=== PATIENT | female | born 1935 | race Caucasian/White ===

== ENCOUNTER 2016-11-28 08:10 | Emergency (ER) | payer MEDICARE ==
[2016-11-28 08:53] LABS: BASOPHILS 0.2 % (0.0-2.0); EOSINOPHILS 2.2 % (0-7); HEMOGLOBIN 13.8 g/dL (12-16); IMMATURE GRANULOCYTES 0.3 % (0-5); MCH 29.4 pg (26.0-34.0); MCHC 32.9 g/dL (31.0-37.0); MCV 89.6 fL (80.0-100.0); MEAN PLATELET VOLUME 9.2 fL (7.4-10.4); MONOCYTES 9.1 % (2-11); NEUTROPHILS 76.2 % (40-80); PLATELET COUNT 186 10x3/uL (130-400); RBC 4.69 10x6/uL (4.00-5.40); RDW 13.6 % (11.5-14.5); WBC 8.7 10x3/uL (4.8-10.8)
[2016-11-28 09:05] LABS: APTT 33.9 SECONDS (22.8-39.4); INR 2.07 (0.85-1.17); PROTIME 23.3 SECONDS (11.6-15.0)
[2016-11-28 09:12] LABS: ANION GAP 7.9 mmol/L (8-16); BILIRUBIN - TOTAL 0.43 mg/dL (0.2-1.3); CALCIUM 10.3 mg/dL (8.5-10.1); CARBON DIOXIDE 31.6 mmol/L (21.0-32.0); CREATININE - SERUM 1.2 mg/dL (0.6-1.3); POTASSIUM - SERUM 3.5 mmol/L (3.5-5.1); PROTEIN - SERUM 6.9 g/dL (6.4-8.2)
[2017-02-05 14:13] VITALS: BMI 30.4
== END 2016-11-28 16:15 | disposition home or self-care (01) ==
LOC: D.ER 08:10
PROVIDERS: Emergency Medicine
DX: K92.2 Gastrointestinal hemorrhage, unspecified (principal); E83.42 Hypomagnesemia; K21.9 Gastro-esophageal reflux disease without esophagitis; N28.9 Disorder of kidney and ureter, unspecified; I10 Essential (primary) hypertension; E78.5 Hyperlipidemia, unspecified; M19.90 Unspecified osteoarthritis, unspecified site; C50.919 Malignant neoplasm of unspecified site of unspecified female breast; K58.9 Irritable bowel syndrome, unspecified

== ENCOUNTER 2017-02-04 11:48 | Inpatient (IN) | payer MEDICARE ==
[~2017-02-04] VITALS: Ht 170.2 cm; Wt 88.0 kg
[2017-02-04 13:08] LABS: BASOPHILS 0.1 % (0.0-2.0); EOSINOPHILS 0.1 % (0-7); HEMATOCRIT 38.5 % (36.0-48.0); HEMOGLOBIN 12.3 g/dL (12-16); IMMATURE GRANULOCYTES 0.4 % (0-5); LYMPHOCYTES 2.4 % (15-50); MCH 29.2 pg (26.0-34.0); MCHC 31.9 g/dL (31.0-37.0); MCV 91.4 fL (80.0-100.0); MEAN PLATELET VOLUME 9.2 fL (7.4-10.4); MONOCYTES 4.9 % (2-11); NEUTROPHILS 92.1 % (40-80); PLATELET COUNT 213 10x3/uL (130-400); RBC 4.21 10x6/uL (4.00-5.40); RDW 14.1 % (11.5-14.5); WBC 13.5 10x3/uL (4.8-10.8)
[2017-02-04 13:11] LABS: APPEARANCE CLOUDY (CLEAR); BILIRUBIN NEGATIVE (NEGATIVE); COLOR YELLOW (YELLOW); GLUCOSE NEGATIVE (NEGATIVE); KETONE NEGATIVE (NEGATIVE); LEUKOCYTE ESTERASE TRACE (NEGATIVE); NITRITE NEGATIVE (NEGATIVE); PROTEIN 3+ mg/dL (NEGATIVE); UROBILINOGEN NORMAL (NORMAL)
[2017-02-04 13:12] LABS: BACTERIA MANY /hpf (NONE SEEN); EPITHELIAL CELLS 0-5 /hpf (0-5); YEAST NONE SEEN /hpf (NONE SEEN)
[2017-02-04 13:41] LABS: CREATININE - SERUM 1.4 mg/dL (0.6-1.3)
[2017-02-04 13:42] LABS: ALBUMIN 2.5 g/dL (3.4-5.0); ANION GAP 12.9 mmol/L (8-16); BILIRUBIN - TOTAL 0.46 mg/dL (0.2-1.3); CALCIUM 9.8 mg/dL (8.5-10.1); CARBON DIOXIDE 27.5 mmol/L (21.0-32.0); POTASSIUM - SERUM 4.4 mmol/L (3.5-5.1); PROTEIN - SERUM 7.1 g/dL (6.4-8.2); TROPONIN-I 0.042 ng/mL (0.000-0.060)
[2017-02-04 15:47] VITALS: BP 120/59; BMI 30.4
[2017-02-04 16:08] VITALS: BP 120/59
--- NOTE | 2017-02-04 16:23 | NUR ---
Patient Name: LAYLA COBB Admission Status: ER Accout number: [id number] Admission Date: 02-04-2017 : 1935 Admission Diagnosis: Attending: ANA Current LOS: 1 Anticipated DC Date: 02-08-2017 Planned Disposition: Nursing Facility [facility] Cert Primary Insurance: MEDICARE A & B Discharge Planning Comments: CM MET WITH PATIENTS DAUGHTER (GUSTAVO) REGARDING D/C NEEDS AND PLANS. PATIENT LIVES AT [facility] FOR 2 YEARS NOW AND WILL RETURN THERE AT DISCHARGE. PATIENT FEEDS HERSELF BUT NEEDS HELP WITH OTHER ADLS. PATIENT IS IN A WHEELCHAIR MOST OF TIME PER DAUGHTER. PATIENTS PCP IS DR. WISDOM AT THE FACILITY AND PHARMACY IS IN HOUSE AT [facility]. CM WILL CONTINUE TO FOLLOW PATIENT WITH D/C NEEDS AND PLANS. PCP DR. WISDOM IN HOUSE AT [place] GUSTAVO RAI (DAUGHTER) [phone] Painter Mirror: Marilee Garcia How many steps to enter\exit or inside your home? 0 0 * PCP DR. WISDOM 0 * Pharmacy IN HOUSE 0 * Preadmission Environment [facility] 0 * Facility Name [facility] 0 * ADLs Partial Dependent 0 * Partial ADLs (Assistance needed) Bathing Dressing Medication Management Toileting Transfers 0 * Equipment Wheelchair 0 * List name and contact numbers for known caregivers / representatives who currently or will assist patient after discharge: GUSTAVO RAI (DAUGHTER) [phone] 0 * Community resources currently utilized None 0 * Additional services required to return to the preadmission environment? Yes 0 * Can the patient safely return to the preadmission environment? Yes 0 * Has this patient been hospitalized within the prior 30 days at any hospital? No 0 Grand Total: 0
[2017-02-04 20:00] VITALS: BP 142/71
--- NOTE | 2017-02-04 20:41 | NUR ---
on patient's chart is a signed form with a box checked "I WANT CPR". I CLARIFIED WITH THE PATIENT SHE STATED "NO, I DO NOT WANT CPR." EXPLAINED TO PATIENT WHAT CPR IS AND WHAT DNR MEANS AND PATIENT VERBALIZED UNDERSTANDING.PATIENT STATED "I DO NOT WANT CPR." WHEN I DID PATIENT'S ADMISSION HISTORY THE PATIENT'S DAUGHTER STATED THE PATIENT IS A DNR, AND STATED SHE WILL BRING A COPY OF THE LIVING WILL TOMORROW. THE PATIENT AGREED. DISCUSSED WITH TARUN EDGE.
[2017-02-04] MEDS ORDERED: OMEPRAZOLE20 M1 PO (20:50)
[2017-02-04] MEDS ORDERED: SLOW RELEASE I160 MG PO (20:50)
[2017-02-04] MEDS ORDERED: VITAMIN D31000 UNIT PO (20:51)
[2017-02-04] MEDS ORDERED: ANASTROZOLE1 MG PO (20:51)
[2017-02-04] MEDS ORDERED: DETROL LA4 MG PO (20:52)
[2017-02-04] MEDS ORDERED: COUMADIN2.5 MG PO (20:52)
[2017-02-04] MEDS ORDERED: INDERAL LA80 MG PO (20:53)
[2017-02-04] MEDS ORDERED: TRIAMTERENE-HCT1 TA1 PO (20:53)
[2017-02-04] MEDS ORDERED: K-TAB10 MEQ PO (20:53)
[2017-02-04] MEDS ORDERED: HYDROCODON-ACE1 EAC7 PO ×2 (20:54→21:02)
[2017-02-04] MEDS ORDERED: NORVASC10 MG PO (20:54)
[2017-02-04] MEDS ORDERED: COLACE100 MG PO (20:58)
[2017-02-04] MEDS ORDERED: MIRALAX17 GM PO (20:58)
[2017-02-04] MEDS ORDERED: MYLANTA / MAALO30 ML PO (20:59)
[2017-02-04] MEDS ORDERED: PREPARATION H S48 EA RC (21:00)
[2017-02-04] MEDS ORDERED: PREPARATION H O57 GM TOPICAL (21:00)
[2017-02-04] MEDS ORDERED: ACETAMINOPHEN325 MG PO ×2 (21:01)
[2017-02-04] MEDS ORDERED: PROAIR HFA8.5 GM INH (21:03)
[2017-02-05] VITALS: BP 157/68
[2017-02-05 05:00] VITALS: BP 103/53
[2017-02-05 05:25] LABS: BASOPHILS 0.1 % (0.0-2.0); EOSINOPHILS 0.1 % (0-7); HEMATOCRIT 34.9 % (36.0-48.0); LYMPHOCYTES 1.8 % (15-50); MCH 28.4 pg (26.0-34.0); MCHC 31.5 g/dL (31.0-37.0); MCV 90.2 fL (80.0-100.0); MEAN PLATELET VOLUME 9.8 fL (7.4-10.4); MONOCYTES 5.4 % (2-11); NEUTROPHILS 91.6 % (40-80); RBC 3.87 10x6/uL (4.00-5.40); RDW 14.1 % (11.5-14.5); WBC 15.7 10x3/uL (4.8-10.8)
[2017-02-05 05:40] LABS: ANION GAP 13.7 mmol/L (8-16); CARBON DIOXIDE 24.7 mmol/L (21.0-32.0); CREATININE - SERUM 1.4 mg/dL (0.6-1.3); MAGNESIUM - SERUM 1.3 mg/dL (1.8-2.4); PHOSPHOROUS 2.4 mg/dL (2.5-4.9)
[2017-02-05 05:41] LABS: PLATELET COUNT 166 10x3/uL (130-400)
[2017-02-05 05:46] LABS: POTASSIUM - SERUM 3.4 mmol/L (3.5-5.1)
[2017-02-05 07:35] VITALS: BP 125/68
[2017-02-05 11:35] VITALS: BP 124/60
[2017-02-05 14:13] VITALS: Ht 170.2 cm; Wt 88.0 kg
--- NOTE | 2017-02-05 14:15 | NUR ---
IV TO LEFT WRIST INFILTRATED WHILE INFUSING NORMAL SALINE. IV ALREADY OUT, PATIENT DENIES PULLING IT OUT. ELEVATED LEFT WRIST.
--- NOTE | 2017-02-05 14:47 | NUR ---
IV STARTED TO RIGHT FOREARM X'S 2 ATTEMTPS.
[2017-02-05 15:55] VITALS: BP 123/57
[2017-02-05 17:43] LABS: PROTIME 22.7 SECONDS (11.6-15.0)
[2017-02-05 20:00] VITALS: BP 120/69
[2017-02-06] VITALS: BP 121/57
[2017-02-06] MEDS ORDERED: NORCO 7.5/325 T1 TA1 PO (01:57)
[2017-02-06 04:00] VITALS: BP 153/79; BP 153/81
--- NOTE | 2017-02-06 07:00 | NUR ---
PT REC'D FROM TARUN EDGE. RESTING IN BED WITH EYES CLOSED. NO SIGNS OF DISTRESS. RESP EVEN AND UNLABORED. BED LOW, CALL LIGHT IN REACH, CPOC.
[2017-02-06 07:07] LABS: BASOPHILS 0.1 % (0.0-2.0); EOSINOPHILS 1.2 % (0-7); HEMATOCRIT 35.6 % (36.0-48.0); HEMOGLOBIN 11.2 g/dL (12-16); IMMATURE GRANULOCYTES 0.3 % (0-5); LYMPHOCYTES 6.6 % (15-50); MCH 28.1 pg (26.0-34.0); MCHC 31.5 g/dL (31.0-37.0); MCV 89.4 fL (80.0-100.0); MEAN PLATELET VOLUME 9.6 fL (7.4-10.4); MONOCYTES 9.4 % (2-11); NEUTROPHILS 82.4 % (40-80); PLATELET COUNT 168 10x3/uL (130-400); RBC 3.98 10x6/uL (4.00-5.40); RDW 13.9 % (11.5-14.5); WBC 13.7 10x3/uL (4.8-10.8)
[2017-02-06 07:14] LABS: INR 1.72 (0.85-1.17); PROTIME 20.1 SECONDS (11.6-15.0)
[2017-02-06 07:19] LABS: ANION GAP 8.8 mmol/L (8-16); CALCIUM 9.5 mg/dL (8.5-10.1); CARBON DIOXIDE 27.9 mmol/L (21.0-32.0); CREATININE - SERUM 1.4 mg/dL (0.6-1.3); POTASSIUM - SERUM 3.7 mmol/L (3.5-5.1)
[2017-02-06 08:41] VITALS: BP 140/74
--- NOTE | 2017-02-06 11:53 | NUR ---
WITHOUT DISTRESS.LYING IN BED.CALL LIGHT IN REACH.ISOLATION MAINTAINED.
[2017-02-06 12:30] VITALS: BP 135/75
[2017-02-06 16:05] VITALS: BP 100/76
--- NOTE | 2017-02-06 17:13 | NUR ---
PRN NORCO ADMINISTERED PER PT C/O SHOULDER AND BACK PAIN. WILL REASSESS. DINNER TRAY IN ROOM. BED LOW, CALL LIGHT IN REACH, DENIES NEEDS. CPOC.
[2017-02-06 20:00] VITALS: BP 148/86
--- NOTE | 2017-02-06 23:17 | NUR ---
ASSESSED AT THE BEGINNING OF THE SHIFT. SHE IS ALERT AND ORIENTED, ABLE TO VERBALIZE NEEDS. WE NEED TO ASSIST HER WITH TURNING AND SHE IS INCONT. WHICH MEANS WE CHANGE HER LINENS FREQUENTLY. SHE HAS 2+ EDEMA TO BILATER LOWER LEGS. THE TELEMETRY IS IN PLACE AND SHE HAS TAKEN HER NIGHT MEDS WITH A PAIN PILL TO HELP HER REST COMFORTABLE. THE BED IS LOW, RAILS UP X'S 2 WITH THE CALL LIGHT AT HAND.
[2017-02-07 04:00] VITALS: BP 152/81
[2017-02-07 05:51] LABS: BASOPHILS 0.3 % (0.0-2.0); EOSINOPHILS 1.6 % (0-7); HEMATOCRIT 34.1 % (36.0-48.0); IMMATURE GRANULOCYTES 0.2 % (0-5); LYMPHOCYTES 5.8 % (15-50); MCH 28.4 pg (26.0-34.0); MCHC 32.3 g/dL (31.0-37.0); MCV 87.9 fL (80.0-100.0); MEAN PLATELET VOLUME 9.5 fL (7.4-10.4); MONOCYTES 11.9 % (2-11); NEUTROPHILS 80.2 % (40-80); PLATELET COUNT 167 10x3/uL (130-400); RBC 3.88 10x6/uL (4.00-5.40)
[2017-02-07 06:01] LABS: WBC 9.5 10x3/uL (4.8-10.8)
[2017-02-07 06:06] LABS: INR 1.77 (0.85-1.17); PROTIME 20.6 SECONDS (11.6-15.0)
[2017-02-07 06:31] LABS: ANION GAP 11.5 mmol/L (8-16); CALCIUM 9.5 mg/dL (8.5-10.1); CARBON DIOXIDE 28.3 mmol/L (21.0-32.0); CREATININE - SERUM 1.1 mg/dL (0.6-1.3); POTASSIUM - SERUM 3.8 mmol/L (3.5-5.1)
[2017-02-07 06:35] LABS: % SATURATION 15 % (15-55); IRON 27 ug/dl (35-150); TOTAL IRON BIND CAPACITY 174 ug/dl (260-445); UNSAT IRON BIND CAPACITY 147 ug/dl (150-375)
[2017-02-07 08:19] VITALS: BP 138/74
--- NOTE | 2017-02-07 11:16 | NUR ---
ALERTED BY NINFA PHYSICAL THERAPIST, THAT AGGRESIVE PROM EXERCISES WERE PERFORMED. PT TOLERATED WELL.
[2017-02-07 11:53] VITALS: BP 132/63
--- NOTE | 2017-02-07 12:52 | NUR ---
AWAKE AND ALERT. ORIENTED X3. NO C/O AT THIS TIME. LUNGS ARE TIGHT ON LEFT SIDE WITH FAINT CRACKLES THROUGHOUT LUNG NGUYỄN, PATIENT REPORTS NON PRODUCTIVE COUGH. SKIN IS INTACT WTIHOUT REDNESS. DENIES NEEDS. FAMILY AT BEDSIDE.
[2017-02-07 15:36] VITALS: BP 158/74
--- NOTE | 2017-02-07 16:08 | NUR ---
COMPLETE LINEN CHANGE PROVIDED DUE TO INCONTINENCE OF URINE. PRN HYDROCODNE AMINISTERED PER PT COMPLIANTS OF 05/17 GENERALIZED PAIN. WILL REASSESS.
[2017-02-07 20:00] VITALS: BP 147/92
--- NOTE | 2017-02-07 20:00 | NUR ---
ASSESSMENT PER FLOWSHEET. INC URINE LINENS CHANGED. IV PATTENT RT ARM OF 1/2NS AT 75CC'S/HR DR. HASKINS HERE IV DECREASED TO 50CC'S/HR. O2 ON 2 L/M PER NC. TELM. SR HR 94.PT IN CONTACT ISOLATION.
--- NOTE | 2017-02-07 22:00 | NUR ---
MEDS GIVEN PER MAR.
[2017-02-08] VITALS: BP 144/88
--- NOTE | 2017-02-08 | NUR ---
INC URINE LINENS CHANGED.
[2017-02-08 05:37] LABS: BASOPHILS 0.2 % (0.0-2.0); EOSINOPHILS 0.8 % (0-7); HEMATOCRIT 37.7 % (36.0-48.0); HEMOGLOBIN 12.5 g/dL (12-16); IMMATURE GRANULOCYTES 0.7 % (0-5); LYMPHOCYTES 4.8 % (15-50); MCH 28.8 pg (26.0-34.0); MCHC 33.2 g/dL (31.0-37.0); MCV 86.9 fL (80.0-100.0); MONOCYTES 9.4 % (2-11); NEUTROPHILS 84.1 % (40-80); PLATELET COUNT 169 10x3/uL (130-400); RBC 4.34 10x6/uL (4.00-5.40); RDW 13.7 % (11.5-14.5); WBC 11.1 10x3/uL (4.8-10.8)
[2017-02-08 05:48] LABS: INR 1.82 (0.85-1.17); PROTIME 21.1 SECONDS (11.6-15.0)
[2017-02-08 06:16] LABS: ANION GAP 11.6 mmol/L (8-16); CALCIUM 10.2 mg/dL (8.5-10.1); CARBON DIOXIDE 27.8 mmol/L (21.0-32.0); CREATININE - SERUM 1.1 mg/dL (0.6-1.3); POTASSIUM - SERUM 3.4 mmol/L (3.5-5.1)
--- NOTE | 2017-02-08 08:02 | NUR ---
PT AOX3 RESP EVEN AND NONLABORED PT DENIES NEEDS AT THIS TIME IV TO RIGHT FOREARM PATENT AND INTACT SRX2 CALL LIGHT WITHIN REACH AND BED AT LOWEST SETTING WILL CONTINUE TO MONITOR
[2017-02-08 08:06] VITALS: BP 165/75
[2017-02-08 11:21] VITALS: BP 122/80
--- NOTE | 2017-02-08 11:28 | NUR ---
IV ACCESS-22 GAUGE INSERTED IN LEFT HAND. KIA MOHR RN
--- NOTE | 2017-02-08 11:57 | NUR ---
IV ON LEFT FOREARM REMOVED BECAUSE OF SWELLING IN HAND AND WRIST CATHETER INTACT. 22G STARTED IN RIGHT HAND PATENT AND INTACT
--- NOTE | 2017-02-08 14:58 | NUR ---
NUTRITION MONITORING & EVAL CHART REVIEWED. PT VISIT. ISOLATION, FAMILY AT BEDSIDE. PT REPORTS NOT EATING SECONDARY NO APPETITE. STATED SHE TOOK "TOO MANY PILLS" PRIOR TO LUNCH. "JUST NOT HUNGRY." WILL CONTINUE TO PROVIDE DIET, HONOR FOOD PREFERENCES. RD FOLLOWING
[2017-02-08 15:20] VITALS: BP 118/68
[2017-02-08 19:00] VITALS: BP 156/72
--- NOTE | 2017-02-08 19:20 | NUR ---
PT LYING IN BED AWAKE, ASSESSMENT COMPLETED, NO ACUTE DISTRESS NOTED, DENIES NEEDS AT THIS TIME, DOES NOT WANT SCD'S ON, SR'S UP, CL IN REACH, ISOLATION PRECAUTIONS IN PLACE, WILL MONITOR
--- NOTE | 2017-02-08 21:12 | NUR ---
PRN NORCO GIVEN FOR C/O GENERALIZED PAIN 06/17 ALONG WITH SCHEDULED MEDS, GRACIE WELL, DENIES FURTHER NEEDS AT THIS TIME, CL IN REACH
--- NOTE | 2017-02-09 00:01 | NUR ---
IV EVAN DUNHAM PER MAR, GRACIE WELL, DENIES NEEDS, SAFETY PRECAUTIONS IN PLACE, CL IN REACH
[2017-02-09 05:00] LABS: BASOPHILS 0.2 % (0.0-2.0); EOSINOPHILS 2.2 % (0-7); HEMATOCRIT 34.7 % (36.0-48.0); HEMOGLOBIN 11.3 g/dL (12-16); IMMATURE GRANULOCYTES 1.4 % (0-5); LYMPHOCYTES 6.2 % (15-50); MCH 28.3 pg (26.0-34.0); MCHC 32.6 g/dL (31.0-37.0); MEAN PLATELET VOLUME 9.6 fL (7.4-10.4); MONOCYTES 10.9 % (2-11); NEUTROPHILS 79.1 % (40-80); PLATELET COUNT 171 10x3/uL (130-400); RBC 3.99 10x6/uL (4.00-5.40); RDW 13.9 % (11.5-14.5); WBC 11.2 10x3/uL (4.8-10.8)
[2017-02-09 05:20] LABS: INR 1.9 (0.85-1.17); PROTIME 21.8 SECONDS (11.6-15.0)
[2017-02-09 06:15] LABS: ANION GAP 13.1 mmol/L (8-16); CALCIUM 9.7 mg/dL (8.5-10.1); CARBON DIOXIDE 24.6 mmol/L (21.0-32.0); CREATININE - SERUM 1.1 mg/dL (0.6-1.3); POTASSIUM - SERUM 3.7 mmol/L (3.5-5.1)
[2017-02-09 08:22] VITALS: BP 161/74
[2017-02-09 11:14] VITALS: BP 142/69
[2017-02-09 15:11] VITALS: BP 136/70
[2017-02-09 19:00] VITALS: BP 121/57
--- NOTE | 2017-02-09 23:40 | NUR ---
192)REC'D WALKING ROUNDS EYES CLOSED RESP. DEEP AND EVEN. 02 2L NC MONITOR SHOWING SR HR 82.CONTACT ISOLATION REMAINS IN PROGRESS.SCD'S INTACT. WILL CONTINUE TO MONITOR FOR ANY CHGES. IN RESP.STATUS AND FOLLOW CURRENT PLAN OF CARE.
[2017-02-10] VITALS: BP 134/60
[2017-02-10 04:00] VITALS: BP 143/41
[2017-02-10 05:49] LABS: BASOPHILS 0.2 % (0.0-2.0); EOSINOPHILS 3.7 % (0-7); HEMATOCRIT 35.9 % (36.0-48.0); HEMOGLOBIN 11.5 g/dL (12-16); IMMATURE GRANULOCYTES 4.1 % (0-5); LYMPHOCYTES 6.1 % (15-50); MCH 27.8 pg (26.0-34.0); MCV 86.9 fL (80.0-100.0); MEAN PLATELET VOLUME 9.7 fL (7.4-10.4); MONOCYTES 13.3 % (2-11); NEUTROPHILS 72.6 % (40-80); PLATELET COUNT 198 10x3/uL (130-400); RBC 4.13 10x6/uL (4.00-5.40); RDW 13.8 % (11.5-14.5); WBC 10.1 10x3/uL (4.8-10.8)
[2017-02-10 05:58] LABS: INR 2.02 (0.85-1.17); PROTIME 22.8 SECONDS (11.6-15.0)
[2017-02-10 06:10] LABS: ANION GAP 10.8 mmol/L (8-16); BILIRUBIN - TOTAL 0.5 mg/dL (0.2-1.3); CARBON DIOXIDE 27.1 mmol/L (21.0-32.0); CREATININE - SERUM 1.1 mg/dL (0.6-1.3); POTASSIUM - SERUM 3.9 mmol/L (3.5-5.1); PROTEIN - SERUM 6.8 g/dL (6.4-8.2)
--- NOTE | 2017-02-10 07:40 | NUR ---
PATIENT RECEIVED IN RIGHT LATERAL POSITION RESTING QUIETLY. RESPIRATIONS EVEN AND UNLABORED. REPOSITIONED IN BED FOR COMFORT. TERESA ALARM ON. SIDE RAILS UP X2. BED IN LOW POSITION. CALL LIGHT IN REACH.
[2017-02-10 08:59] VITALS: BP 158/81
--- NOTE | 2017-02-10 09:10 | NUR ---
PATIENT ALERT IN MID JAFFE POSITION. RESPIRATIONS EVEN AND UNLABORED. SCHEDULED MEDICATION ADMINISTERED WELL NORCO PER PRN ORDER FOR PAIN 08/17. SIDE RAILS UP X2. BED IN LOW POSITION. CALL LIGHT IN REACH. TERESA ALARM ON.
--- NOTE | 2017-02-10 11:35 | NUR ---
PATIENT IN LOW JAFFE POSITION RESTING WITH EYES CLOSED. RESPIRATIONS EVEN AND UNLABORED. WAKES EASY. SCHEDULED MEDICATION ADMINISTERED. SIDE RAILS UP X2. BED IN LOW POSITION. CALL LIGHT IN REACH. TERESA ALARM ON.
[2017-02-10 13:09] VITALS: BP 135/67
--- NOTE | 2017-02-10 13:45 | NUR ---
SITTING UP IN CHAIR AT BEDSIDE. NO SIGNS OF DISTRESS NOTED. NORCO PER PRN ORDER FOR PAIN /10. NO FURTHER NEEDS VOICED. CALL LIGHT IN REACH. TERESA ALARM ON.
--- NOTE | 2017-02-10 15:05 | NUR ---
PATIENT IN LOW JAFFE POSITION RESTING QUIETLY. RESPIRATIONS EVEN AND UNLABORED. FAMILY AT BEDSIDE. SCHEDULED MEDICATION ADMINISTERED. SIDE RAILS UP X2. BED IN LOW POSITION. CALL LIGHT IN REACH. TERESA ALARM ON.
--- NOTE | 2017-02-10 15:39 | NUR ---
NUTRITION MONITORING & EVAL CHART REVIEWED, PT VISIT. PT REFUSING LUNCH, REFUSING ENSURE. STATES SHE IS NOT HUNGRY. NO RECENT BM RECORDED. ? CONSTIPATION. DOES NOT APPEAR PRN COLACE OR MIRALAX HAS BEEN GIVEN. WILL SPEAK WITH NURSING. RD FOLLOWING
--- NOTE | 2017-02-10 17:27 | NUR ---
MIRALAX ADMINISTERED PER PRN ORDER. PATIENT REPORTS SHE IS UNSURE WHEN LAST BM WAS. FAMILY PRESENT AT BEDSIDE. SIDE RAILS UP X2. BED IN LOW POSITION. CALL LIGHT IN REACH. TERESA ALARM ON.
[2017-02-10 17:30] VITALS: BP 128/61
[2017-02-10 19:00] VITALS: BP 113/59
--- NOTE | 2017-02-10 20:00 | NUR ---
AWAKE,ALERT.NO DISTRESS NOTED. O2 AT 2 L PER NC ON. IV 1/2 NS INFUSING TO LEFT HAND WIHTOUT REDNESS OR EDEMA. CL IN REACH
[2017-02-11] VITALS: BP 149/73
--- NOTE | 2017-02-11 00:57 | NUR ---
RESTING QUIETLY. NO DISTRESS NOTED. CL IN REACH
[2017-02-11 04:00] VITALS: BP 140/61
--- NOTE | 2017-02-11 04:35 | NUR ---
PATIENT RESTING IN BED WITH EYES CLOSED. BED IN LOWEST POSITION AND CALL LIGHT WITHIN REACH.
--- NOTE | 2017-02-11 05:51 | NUR ---
AWAKE,ALERT, NO COMPLAINTS VOICED. CL IN REACH.
[2017-02-11 06:20] LABS: BASOPHILS 0.2 % (0.0-2.0); EOSINOPHILS 2.7 % (0-7); HEMATOCRIT 37.4 % (36.0-48.0); HEMOGLOBIN 12.1 g/dL (12-16); IMMATURE GRANULOCYTES 2.3 % (0-5); LYMPHOCYTES 5.7 % (15-50); MCH 28.1 pg (26.0-34.0); MCHC 32.4 g/dL (31.0-37.0); MEAN PLATELET VOLUME 9.3 fL (7.4-10.4); MONOCYTES 9.6 % (2-11); NEUTROPHILS 79.5 % (40-80); PLATELET COUNT 222 10x3/uL (130-400); RDW 13.8 % (11.5-14.5); WBC 10.7 10x3/uL (4.8-10.8)
[2017-02-11 06:34] LABS: INR 2.24 (0.85-1.17); PROTIME 24.8 SECONDS (11.6-15.0)
[2017-02-11 06:58] LABS: ALBUMIN 1.9 g/dL (3.4-5.0); ANION GAP 10.5 mmol/L (8-16); BILIRUBIN - TOTAL 0.6 mg/dL (0.2-1.3); CALCIUM 10.1 mg/dL (8.5-10.1); CARBON DIOXIDE 28.2 mmol/L (21.0-32.0); CREATININE - SERUM 1.1 mg/dL (0.6-1.3); POTASSIUM - SERUM 3.7 mmol/L (3.5-5.1); PROTEIN - SERUM 6.8 g/dL (6.4-8.2)
[2017-02-11 08:00] VITALS: BP 149/71
--- NOTE | 2017-02-11 08:15 | NUR ---
SLEEPING EASILY AROUSED, DENIES NEEDS, ASSESSMENT COMPLETE, TERESA MAT ON, BED LOWEST POSIITON, CALL LIGHT IN REACH, WILL CONTINUE TO MONITOR
[2017-02-11 12:00] VITALS: BP 126/60
--- NOTE | 2017-02-11 13:37 | NUR ---
AWAKE AND ALERT. ORIENTED X3. SITTING UP IN CHAIR AT BEDSIDE. LUNGS CONTINUE TO BE DIMINISHED ON LEFT SIDE WITH CRACKLES NOTED TO RIGHT. NO COUGH NOTED. DENIES NEEDS.
--- NOTE | 2017-02-11 14:00 | NUR ---
UP IN CHAIR AT THIS TIME. SLEEPING WITH RESPIRATIONS EVEN AND NON LABORED. CALL LIGHT IN REACH, NO NEEDS ASSESSED AT THIS TIME. REMAINS IN CONTACT ISOLATION. WILL CONTINUE WITH PLAN OF CARE.
[2017-02-11 16:00] VITALS: BP 126/51
[2017-02-11 19:00] VITALS: BP 128/63
[2017-02-12] VITALS: BP 135/69
--- NOTE | 2017-02-12 | NUR ---
PT INCONTINENT OF BLADDER. CHANGED PADS AND GOWN. GAVE PT NORCO FOR RIGHT SIDE AND BACK PAIN. REPOSITIONED AND TURNED. NO OTHER NEEDS. WILL CONTINUE TO MONITOR.
[2017-02-12 04:00] VITALS: BP 156/73
[2017-02-12 05:24] LABS: BASOPHILS 0.2 % (0.0-2.0); EOSINOPHILS 1.8 % (0-7); HEMATOCRIT 34.5 % (36.0-48.0); HEMOGLOBIN 11.3 g/dL (12-16); IMMATURE GRANULOCYTES 2.2 % (0-5); LYMPHOCYTES 7.2 % (15-50); MCH 28.5 pg (26.0-34.0); MCHC 32.8 g/dL (31.0-37.0); MCV 87.1 fL (80.0-100.0); MEAN PLATELET VOLUME 9.4 fL (7.4-10.4); MONOCYTES 10.4 % (2-11); NEUTROPHILS 78.2 % (40-80); PLATELET COUNT 217 10x3/uL (130-400); RBC 3.96 10x6/uL (4.00-5.40); RDW 13.9 % (11.5-14.5); WBC 11.1 10x3/uL (4.8-10.8)
[2017-02-12 05:44] LABS: INR 2.63 (0.85-1.17); PROTIME 28.2 SECONDS (11.6-15.0)
[2017-02-12 05:52] LABS: ALBUMIN 1.9 g/dL (3.4-5.0); ANION GAP 11.7 mmol/L (8-16); BILIRUBIN - TOTAL 0.5 mg/dL (0.2-1.3); CALCIUM 9.8 mg/dL (8.5-10.1); CREATININE - SERUM 1.1 mg/dL (0.6-1.3); POTASSIUM - SERUM 3.7 mmol/L (3.5-5.1); PROTEIN - SERUM 5.7 g/dL (6.4-8.2)
--- NOTE | 2017-02-12 07:40 | NUR ---
SITTING IN BED WAITING FOR BREAKFAST, HAS SOME PAIN ON THE RIGHT SIDE, REQUEST PAIN MEDS, DENIES NEEDS, BED LOWEST POSITION, CALL LIGHT IN REACH, PAIN MEDS CAN BE GIVEN AT 0900, WILL CONTINUE TO MONITOR
[2017-02-12 08:20] VITALS: BP 136/70
[2017-02-12 12:14] VITALS: BP 122/70
--- NOTE | 2017-02-12 14:35 | NUR ---
RESTING QUIETLY IN BED. DENIES NEEDS. LUNGS IMPROVED FROM YESTERDAY WITH SCANT CRACKLES THROUGHTOUT. INCONTINENT OF URINE AT THIS TIME.
[2017-02-12 15:26] VITALS: BP 141/66
--- NOTE | 2017-02-12 19:50 | NUR ---
PT LYING IN BED AWAKE, NO ACUTE DISTRESS NOTED, NC IN PLACE AT 2L, SCD'S IN PLACE, TERESA ALARM ON, DENIES PAIN OR NEEDS AT THIS TIME, CL IN REACH, WILL MONITOR
[2017-02-12 20:00] VITALS: BP 143/69
--- NOTE | 2017-02-12 21:30 | NUR ---
MEDS GIVEN PER MAR, GRACIE WELL, CL IN REACH
--- NOTE | 2017-02-12 23:39 | NUR ---
IV ZOSYN HUNG PER PIERRE, GRACIE WELL, SAFETY AND ISOLATION PRECAUTIONS IN PLACE, CL IN REACH
[2017-02-13] VITALS: BP 171/87
--- NOTE | 2017-02-13 01:16 | NUR ---
PRN NORCO GIVEN FOR C/O GENERALIZED PAIN 06/17, GRACIE WELL, WILL MONITOR, CL IN REACH
--- NOTE | 2017-02-13 03:21 | NUR ---
RESTING WITH EYES CLOSED, NO DISTRESS NOTED, FALL AND ISOLATION PRECAUTIONS IN PLACE, CL IN REACH
[2017-02-13 04:00] VITALS: BP 144/88
[2017-02-13 06:16] LABS: BASOPHILS 0.2 % (0.0-2.0); EOSINOPHILS 1.5 % (0-7); HEMATOCRIT 35.8 % (36.0-48.0); HEMOGLOBIN 11.5 g/dL (12-16); LYMPHOCYTES 7.1 % (15-50); MCH 28.1 pg (26.0-34.0); MCHC 32.1 g/dL (31.0-37.0); MCV 87.5 fL (80.0-100.0); MEAN PLATELET VOLUME 9.1 fL (7.4-10.4); MONOCYTES 9.2 % (2-11); RBC 4.09 10x6/uL (4.00-5.40); RDW 13.8 % (11.5-14.5); WBC 12.1 10x3/uL (4.8-10.8)
[2017-02-13 06:23] LABS: PLATELET COUNT 277 10x3/uL (130-400)
[2017-02-13 06:36] LABS: ALBUMIN 1.9 g/dL (3.4-5.0); BILIRUBIN - TOTAL 0.45 mg/dL (0.2-1.3); CALCIUM 10.2 mg/dL (8.5-10.1); CARBON DIOXIDE 26.4 mmol/L (21.0-32.0); CREATININE - SERUM 1.1 mg/dL (0.6-1.3); POTASSIUM - SERUM 3.4 mmol/L (3.5-5.1); PROTEIN - SERUM 6.8 g/dL (6.4-8.2)
[2017-02-13 06:47] LABS: PROTIME 32.8 SECONDS (11.6-15.0)
[2017-02-13 06:48] LABS: INR 3.17 (0.85-1.17)
--- NOTE | 2017-02-13 07:30 | NUR ---
RECIEVED PT DURING WALKING ROUNDS. PT RESTING IN BED WITH COMPLAINTS OF PAIN OF A 6 ON A SCALE OF 1-10. WILL ADMINISTER PAIN MEDICATION PER ORDER. ASSESSMENT DONE PER FLOWSHEET. BED IN LOW POSITION AND CALL LIGHT WITHIN REACH. WILL CONTINUE TO MONITOR.
[2017-02-13 08:25] VITALS: BP 170/96
--- NOTE | 2017-02-13 09:40 | NUR ---
ADMINISTERED PAIN MEDICATION AT THIS TIME PER ORDER FOR PAIN OF A 8 ON A SCALE OF 1-10. PT HAS VISITOR AT BEDSIDE. BED IN LOW POSITION AND CALL LIGHT WITHIN REACH. WILL CONTINUE TO MONITOR.
[2017-02-13 12:32] VITALS: BP 148/74
--- NOTE | 2017-02-13 17:17 | NUR ---
PATIENT IS RESTING IN BED. CONTACT PRECAUTIONS IN PLACE. PATIENT DENIES ANY NEEDS AT PRESENT TIME. NO COMPLAINTS OF PAIN. CALL LIGHT IN PATIENT'S REACH. WILL MONITOR PATIENT.
[2017-02-13 17:31] VITALS: BP 175/83
[2017-02-13 19:01] VITALS: BP 128/63
[2017-02-14] VITALS: BP 143/63
--- NOTE | 2017-02-14 02:00 | NUR ---
PT IN BED WITH NO DISTRESS. RESPIRATIONS ARE EVEN AND UNLABORED. ISOLATION PRECAUTIONS IN PLACE. SIDE RAILS ARE UP X 2. BED IS LOW. CALL LIGHT IS WITHIN REACH.
[2017-02-14 04:00] VITALS: BP 132/60
[2017-02-14 04:51] LABS: BASOPHILS 0.2 % (0.0-2.0); HEMATOCRIT 37.2 % (36.0-48.0); IMMATURE GRANULOCYTES 1.8 % (0-5); LYMPHOCYTES 7.1 % (15-50); MCH 28.2 pg (26.0-34.0); MCHC 32.3 g/dL (31.0-37.0); MCV 87.3 fL (80.0-100.0); MEAN PLATELET VOLUME 9.1 fL (7.4-10.4); MONOCYTES 7.2 % (2-11); NEUTROPHILS 82.7 % (40-80); RBC 4.26 10x6/uL (4.00-5.40); RDW 13.9 % (11.5-14.5)
[2017-02-14 04:53] LABS: PLATELET COUNT 354 10x3/uL (130-400)
[2017-02-14 05:02] LABS: INR 3.4 (0.85-1.17); PROTIME 34.7 SECONDS (11.6-15.0)
[2017-02-14 05:09] LABS: ANION GAP 10.5 mmol/L (8-16); BILIRUBIN - TOTAL 0.5 mg/dL (0.2-1.3); CALCIUM 10.7 mg/dL (8.5-10.1); CARBON DIOXIDE 28.3 mmol/L (21.0-32.0); CREATININE - SERUM 1.1 mg/dL (0.6-1.3); POTASSIUM - SERUM 3.8 mmol/L (3.5-5.1); PROTEIN - SERUM 7.2 g/dL (6.4-8.2)
--- NOTE | 2017-02-14 07:10 | NUR ---
PT REC'D FROM KATHY OLVERA. RESTING IN BED WITH EYES CLOSED. NO SIGNS OF DISTRESS. RESP EVEN AND UNLABORED. BED LOW, CALL LIGHT IN REACH, DENIES NEEDS. CPOC.
[2017-02-14 08:28] VITALS: BP 143/86
--- NOTE | 2017-02-14 09:25 | NUR ---
MORNING MEDS PASSED AT THIS TIME. PRN NORCO ADMINISTERED PER PT C/O GENERALIZED PAIN. COMPLETE LINEN CHANGE PROVIDED DUE TO INCONT OF BLADDER. COCCYX RED AND NON-BLANCHABLE. REPOSITIONED TO L SIDE. BED LOW, CALL LIGHT IN REACH, DENIES NEEDS. CPOC.
[2017-02-14 12:02] VITALS: BP 134/68
--- NOTE | 2017-02-14 16:00 | NUR ---
PRN NORCO ADMINISTERED PER PT COMPLAINTS OF 8/10 GENERALIZED PAIN. WILL REASSESS. COMPLETE LINEN CHANGE PROVIDED DUE TO INCONT. PT TURNED TO R SIDE. BED LOW, CALL LIGHT IN REACH, DENIES NEEDS. CPOC.
--- NOTE | 2017-02-14 16:15 | NUR ---
PT AOX4 RESP EVEN AND NONLABORED IV TO LEFT WRIST PATENT AND INTAC. PT RECEIVING IV ANTIBIOTICS FOR ECOLI IN BLOODSTREAM. PT DENIES NEEDS AT THIS TIME. BED AT LOWEST SETTING CALL LIGHT WITHIN REACH WILL CONTINUE TO MONITOR
--- NOTE | 2017-02-14 16:25 | NUR ---
16FR SCOTT CATHETER INSTERTED USING STERILE TECHNIQUE. IMMEDIATE RETURN OF APPROXIMATLY 500CC'S OF CLEAR GERI URINE. PT TOLERATED WELL. STAT LOCK APPLIED TO R LEG. REPOSITIONED IN BED TO R SIDE. BED LOW, CALL LIGHT IN REACH, DENIES NEEDS. CPOC.
[2017-02-14 16:36] VITALS: BP 126/78
[2017-02-14 20:00] VITALS: BP 147/70
[2017-02-15 00:30] VITALS: BP 101/54
--- NOTE | 2017-02-15 03:41 | NUR ---
PATIENT RESTING WITH EYES CLOSED. NO VISIBLE SIGNS OF DISTRESS. BED IN LOWEST POSITION AND CALL LIGHT WITHIN REACH.
--- NOTE | 2017-02-15 03:47 | NUR ---
PATIENT HAS RESTED IN BED COMFORTABLY ALL NIGHT. HAD TO RECITE IV. IT IS NOW IN THE RIGHT WRIST. MAYA REDMOND AND I ALSO CHANGED LINENS, GOT A STOOL SAMPLE AND SENT IT TO LAB. VALENTINE WAS ALSO RUNNING A FEVER OF 103.2 @ 1930 ADMINISTERED TYLENOL PRECRIBED AND IT DROPPED TO 98.3. NO DISTRESS NOTED. DENIED PAIN. INTRUCTED TO CALL IF SHE NEEDED ANYTHING. VERBALIZED UNDERSTANDING. BED LOW, LOCKED, CALL LIGHT IN REACH, ALARM ON.
[2017-02-15 04:39] VITALS: BP 125/62
[2017-02-15 06:09] LABS: INR 3.16 (0.85-1.17); PROTIME 32.7 SECONDS (11.6-15.0)
--- NOTE | 2017-02-15 06:28 | NUR ---
PATIENT IS RESTING COMFORTABLY IN BED. NO DISTRESS NOTED. FEVER IS STILL DOWN FROM EARLIER IN THE SHIFT. IS MORE ALERT THIS MORNING. ADMINISTERED MEDS PRESCRIBED. DENIED NEEDS AT THIS TIME. INSTRUCTED TO CALL IF NEEDED ANYTHING BED LOW, LOCKED, CALL LIGHT IN REACH, ALARM ON.
--- NOTE | 2017-02-15 07:49 | NUR ---
PATIENT IS RESTING QUIETLY WITH EYES CLOSED. RESPIRATIONS ARE EVEN AND UNLABORED, PATIENT IS RECEIVING OXYGEN VIA NASAL CANNULA AT 2L/MIN. CONTACT PRECAUTIONS MAINTAINED. BED IN LOWEST POSITION, CALL LIGHT IN REACH. BED RIALS UP X'S 2. SCOTT CATHETER HANGING ON THE SIDE OF THE BED, DRAINING TO GRAVITY.
--- NOTE | 2017-02-15 07:55 | NUR ---
PATIENT IN LOW JAFFE POSITION RESTING WITH EYES CLOSED. RESPIRATIONS EVEN AND UNLABORED. SIDE RAILS UP X3. BED IN LOW POSITION. CALL LIGHT IN REACH.
--- NOTE | 2017-02-15 08:35 | NUR ---
PT RESTING WELL AROUSED TO VERBAL STIMULI. ORIENTED TO NAME ONLY. COMPLAINS OF PAIN AND DISCOMFORT TREATED PER ORDER. ALL ADLS PER STAFF PT WITH CALL LIGHT IN REACH SIDE RAILS UP X 2
[2017-02-15 08:58] VITALS: BP 131/99
[2017-02-15 09:33] LABS: HEMATOCRIT 37.7 % (36.0-48.0); HEMOGLOBIN 12.1 g/dL (12-16); MCH 28.2 pg (26.0-34.0); MCHC 32.1 g/dL (31.0-37.0); MCV 87.9 fL (80.0-100.0); MEAN PLATELET VOLUME 8.8 fL (7.4-10.4); PLATELET COUNT 394 10x3/uL (130-400); RBC 4.29 10x6/uL (4.00-5.40); WBC 27.5 10x3/uL (4.8-10.8)
[2017-02-15 09:57] LABS: BILIRUBIN - TOTAL 0.55 mg/dL (0.2-1.3); CALCIUM 10.1 mg/dL (8.5-10.1); CARBON DIOXIDE 29.8 mmol/L (21.0-32.0); PROTEIN - SERUM 6.2 g/dL (6.4-8.2)
[2017-02-15 09:58] LABS: ANION GAP 13.8 mmol/L (8-16); CREATININE - SERUM 1.5 mg/dL (0.6-1.3); POTASSIUM - SERUM 4.6 mmol/L (3.5-5.1)
[2017-02-15 10:26] LABS: EOSINOPHILS 1 % (0-7); LYMPHOCYTES 2 % (15-50); MONOCYTES 2 % (2-11); NEUTROPHILS 90 % (40-80); PLATELET ESTIMATE NORMAL
[2017-02-15 11:36] VITALS: BP 119/53
--- NOTE | 2017-02-15 13:49 | NUR ---
CONTNUES TO REST QUIETLY NO DISTRESS NTOED VOICES NEEDS CALL LIGHT IN REACH.
[2017-02-15 15:51] VITALS: BP 120/54
--- NOTE | 2017-02-15 18:11 | NUR ---
NO ACUTE DISTRESS NOTED FAMILY AT BEDSIDE. CALL LIGHT IN REACH SIDE RAILS UP X 2
[2017-02-15 19:00] VITALS: BP 138/63
--- NOTE | 2017-02-15 19:40 | NUR ---
SITTING UP IN CHAIR VISITING WITH FAMILY, ASSESSMENT COMPLETED, NO DISTRESS NOTED, DENIES NEEDS AT THIS TIME, CL IN REACH, WILL MONITOR
--- NOTE | 2017-02-15 19:40 | NUR ---
ASSESSMENT COMPLETED, NO ACUTE DISTRESS NOTED, DENIES NEEDS AT THIS TIME, SAFETY AND ISOLATION PRECAUTIONS IN PLACE, CL IN REACH, WILL MONITOR
--- NOTE | 2017-02-15 20:41 | NUR ---
MEDS GIVEN PER MAR, GRACIE WELL, DENIES NEEDS AT THIS TIME, CL IN REACH
--- NOTE | 2017-02-15 20:41 | NUR ---
MEDS GIVEN PER MAR, GRACIE WELL, DENIES NEEDS AT THIS TIME, CL IN REACH
--- NOTE | 2017-02-15 23:15 | NUR ---
RAYMOND DUNHAM PER MAR, GRACIE WELL, NO NEEDS NOTED, CL IN REACH
--- NOTE | 2017-02-16 01:05 | NUR ---
FLUIDS CHANGED PER NEW ORDERS AND HUNG WITH SCHEDULED AB'S, GRACIE WELL, SAFETY PRECAUTIONS IN PLACE, CL IN REACH
--- NOTE | 2017-02-16 03:52 | NUR ---
RESTING WITH EYES CLOSED, RESP WITH EASE, NC IN PLACE, SR'S UP, ALARM ON, CL IN REACH
[2017-02-16 04:00] VITALS: BP 124/66
[2017-02-16 05:29] LABS: INR 3.33 (0.85-1.17); PROTIME 34.2 SECONDS (11.6-15.0)
[2017-02-16 05:39] LABS: ALBUMIN 1.9 g/dL (3.4-5.0); BILIRUBIN - TOTAL 0.32 mg/dL (0.2-1.3); CALCIUM 9.6 mg/dL (8.5-10.1); CARBON DIOXIDE 28.6 mmol/L (21.0-32.0); CREATININE - SERUM 1.2 mg/dL (0.6-1.3); PHOSPHOROUS 2.2 mg/dL (2.5-4.9)
[2017-02-16 05:46] LABS: ANION GAP 11.2 mmol/L (8-16); POTASSIUM - SERUM 3.8 mmol/L (3.5-5.1)
[2017-02-16 05:53] LABS: HEMATOCRIT 32.6 % (36.0-48.0); HEMOGLOBIN 10.7 g/dL (12-16); MCH 28.5 pg (26.0-34.0); MCHC 32.8 g/dL (31.0-37.0); MCV 86.9 fL (80.0-100.0); MEAN PLATELET VOLUME 8.7 fL (7.4-10.4); NEUTROPHILS 87.7 % (40-80); PLATELET COUNT 409 10x3/uL (130-400); RBC 3.75 10x6/uL (4.00-5.40); RDW 13.9 % (11.5-14.5); WBC 13.7 10x3/uL (4.8-10.8)
--- NOTE | 2017-02-16 07:45 | NUR ---
ASSESSMENT PER FLOW SHEET.PT WITHOUT DISTRESS.ISOLATION MAINTAINED.CALL LIGHT IN REACH.
[2017-02-16 08:10] VITALS: BP 143/71
[2017-02-16 11:41] VITALS: BP 138/74
--- NOTE | 2017-02-16 14:11 | NUR ---
NUTRITION MONITORING & EVAL CHART REVIEWED. PT REMAINS IN ISOLATION. CONTINUED POOR PO INTAKE. 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 RD FOLLOWING
[2017-02-16 16:41] VITALS: BP 129/68
--- NOTE | 2017-02-16 19:38 | NUR ---
REMAINS WITHOUT NEEDS,WTHOUT CHNAGE.CONT PLAN OF CARE
[2017-02-16 20:00] VITALS: BP 148/63
--- NOTE | 2017-02-16 20:58 | NUR ---
MEDS GIVEN PER MAR, GRACIE WELL, DENIES OTHER NEEDS AT THIS TIME, CL IN REACH
[2017-02-17] VITALS: BP 150/71
[2017-02-17 04:00] VITALS: BP 139/74
--- NOTE | 2017-02-17 07:30 | NUR ---
ASSESSMENT PER FLOW SHEET.PT WITHOUT DISTRESS.FALL PREVENTION IN PLACE.TERESA MAT IN PLACE. CALL LIGHT IN REACH.DOOR OPEN TO MONITOR.ISOLATION MAINTAINED.
[2017-02-17 07:47] LABS: BASOPHILS 0.2 % (0.0-2.0); EOSINOPHILS 1.8 % (0-7); HEMATOCRIT 31.5 % (36.0-48.0); HEMOGLOBIN 10.3 g/dL (12-16); IMMATURE GRANULOCYTES 1.3 % (0-5); LYMPHOCYTES 7.6 % (15-50); MCH 28.5 pg (26.0-34.0); MCHC 32.7 g/dL (31.0-37.0); MONOCYTES 7.8 % (2-11); NEUTROPHILS 81.3 % (40-80); PLATELET COUNT 425 10x3/uL (130-400); RBC 3.62 10x6/uL (4.00-5.40); RDW 14.1 % (11.5-14.5); WBC 11.8 10x3/uL (4.8-10.8)
[2017-02-17 08:00] LABS: ALBUMIN 1.8 g/dL (3.4-5.0); ANION GAP 11.6 mmol/L (8-16); BILIRUBIN - TOTAL 0.34 mg/dL (0.2-1.3); CALCIUM 9.5 mg/dL (8.5-10.1); CARBON DIOXIDE 27.1 mmol/L (21.0-32.0); POTASSIUM - SERUM 3.7 mmol/L (3.5-5.1); PROTEIN - SERUM 5.8 g/dL (6.4-8.2)
[2017-02-17 08:41] VITALS: BP 138/64
[2017-02-17 09:38] LABS: INR 2.23 (0.85-1.17); PROTIME 24.7 SECONDS (11.6-15.0)
--- NOTE | 2017-02-17 12:20 | NUR ---
STILL UP INCHAIR.REMAINS WITHOUT DISTRESS.CALL LIGHT IN REACH
[2017-02-17 13:58] VITALS: BP 143/67
--- NOTE | 2017-02-17 16:59 | NUR ---
FAMILY AT BEDSIDE AND PT REMAINS WITHOUT NEEDS.TYLENOL FOR BODY ACHES ORDERED.MONITOR.ISOLATION MAINTAINED
[2017-02-17 17:09] VITALS: BP 127/64
--- NOTE | 2017-02-17 18:23 | NUR ---
REMAINS WITHOUT NEEDS,WITHOUT DISTRESS.CONT PLAN OF CARE
--- NOTE | 2017-02-17 19:40 | NUR ---
LYING IN BED AWAKE, ASSESSMENT COMPLETED, NO ACUTE DISTRESS NOTED, DENIES NEEDS AT THIS TIME, SR'S UP, SCD'S IN PLACE, TERESA ALARM ON, CL IN REACH, WILL MONITOR
[2017-02-17 20:00] VITALS: BP 134/59
--- NOTE | 2017-02-17 20:55 | NUR ---
PRN TYLENOL GIVEN PER REQUEST FOR C/O LEG PAIN 06/17 ALONG WITH ROUTINE MEDS, GRACIE WELL, SAFETY MEASURE IN PLACE, CL IN REACH
--- NOTE | 2017-02-17 23:33 | NUR ---
IV AB'S HUNG PER MAR, GRACIE WELL, NO NEEDS NOTED, CL IN REACH
[2017-02-18] VITALS: BP 144/72
--- NOTE | 2017-02-18 01:15 | NUR ---
RESTING WITH EYES CLOSED, NC IN PLACE, NO DISTRESS NOTED, WILL CONTINUE TO MONITOR
--- NOTE | 2017-02-18 03:29 | NUR ---
CONTINUES TO REST WITH EYES CLOSED, NO DISTRESS NOTED, CL IN REACH
[2017-02-18 04:00] VITALS: BP 150/61
[2017-02-18 05:40] LABS: BASOPHILS 0.4 % (0.0-2.0); EOSINOPHILS 2.3 % (0-7); HEMATOCRIT 33.3 % (36.0-48.0); HEMOGLOBIN 10.7 g/dL (12-16); IMMATURE GRANULOCYTES 3.5 % (0-5); LYMPHOCYTES 8.2 % (15-50); MCH 28.2 pg (26.0-34.0); MCHC 32.1 g/dL (31.0-37.0); MCV 87.6 fL (80.0-100.0); MEAN PLATELET VOLUME 8.9 fL (7.4-10.4); MONOCYTES 8.9 % (2-11); NEUTROPHILS 76.7 % (40-80); PLATELET COUNT 460 10x3/uL (130-400); RDW 14.2 % (11.5-14.5); WBC 12.7 10x3/uL (4.8-10.8)
[2017-02-18 06:02] LABS: PROTIME 19.9 SECONDS (11.6-15.0)
[2017-02-18 06:07] LABS: INR 1.7 (0.85-1.17)
[2017-02-18 06:12] LABS: ALBUMIN 1.9 g/dL (3.4-5.0); ANION GAP 13.9 mmol/L (8-16); BILIRUBIN - TOTAL 0.41 mg/dL (0.2-1.3); CALCIUM 9.5 mg/dL (8.5-10.1); POTASSIUM - SERUM 3.9 mmol/L (3.5-5.1); PROTEIN - SERUM 5.9 g/dL (6.4-8.2)
[2017-02-18 08:01] VITALS: BP 151/71
--- NOTE | 2017-02-18 11:30 | NUR ---
PATIENT IN BED RESTING QUIETLY WITH NO SIGNS OF DISTRESS. CALL LIGHT WITHIN REACH.
[2017-02-18 12:11] VITALS: BP 129/67
[2017-02-18 15:44] VITALS: BP 124/74
--- NOTE | 2017-02-18 18:53 | NUR ---
ASSESSMENT COMPLETED THIS AM ROUND 0800 NOTED AT 1015 TO BE TACHNIPNIC. RESPIRATORY RATE [address] HATFIELD AND FAM NEW ORDER FOR STAT CXR AND 40 MG IVP LASIX. AFTER 1 HR PT NOTED TO HAVE DECREASED RESPIRATORY RATE AND STABILIZED. PT HAS ALSO NOTED TO BE AFEBRILE. LUNGS SOUNDS IMPROVED.
[2017-02-18 20:00] VITALS: BP 141/78
--- NOTE | 2017-02-18 21:35 | NUR ---
PATIENT RESTING IN BED. CONTINUES WITH INCREASED RESPIRATIONS. C/O PAIN 8/10 "ALL OVER" PRN BUPRENEX GIVEN ORDERED. NO OTHER COMPLAINTS AT THIS TIIME. SCHEDULED MEDS GIVEN. SHIFT ASSESSMENT COMPLETED. BED LOW CALL LIGHT IN REACH
[2017-02-19] VITALS: BP 116/60
[2017-02-19 04:00] VITALS: BP 158/74
[2017-02-19 05:51] LABS: BASOPHILS 0.5 % (0.0-2.0); EOSINOPHILS 1.9 % (0-7); HEMATOCRIT 34.6 % (36.0-48.0); HEMOGLOBIN 11.1 g/dL (12-16); IMMATURE GRANULOCYTES 4.6 % (0-5); LYMPHOCYTES 7.8 % (15-50); MCH 28.4 pg (26.0-34.0); MCHC 32.1 g/dL (31.0-37.0); MCV 88.5 fL (80.0-100.0); MEAN PLATELET VOLUME 8.9 fL (7.4-10.4); MONOCYTES 7.2 % (2-11); PLATELET COUNT 445 10x3/uL (130-400); RBC 3.91 10x6/uL (4.00-5.40); RDW 14.5 % (11.5-14.5); WBC 14.9 10x3/uL (4.8-10.8)
[2017-02-19 06:04] LABS: INR 1.57 (0.85-1.17); PROTIME 18.7 SECONDS (11.6-15.0)
[2017-02-19 06:13] LABS: ALBUMIN 1.8 g/dL (3.4-5.0); ANION GAP 8.7 mmol/L (8-16); BILIRUBIN - TOTAL 0.4 mg/dL (0.2-1.3); CALCIUM 10.6 mg/dL (8.5-10.1); CARBON DIOXIDE 29.2 mmol/L (21.0-32.0); CREATININE - SERUM 1.1 mg/dL (0.6-1.3); PHOSPHOROUS 3.1 mg/dL (2.5-4.9); POTASSIUM - SERUM 3.9 mmol/L (3.5-5.1); PROTEIN - SERUM 6.6 g/dL (6.4-8.2)
--- NOTE | 2017-02-19 07:40 | NUR ---
REPORT RECEIVED FROM HYPNOTHERAPIST NURSE. CALL LIGHT IN REACH.
[2017-02-19 08:50] VITALS: BP 148/62
--- NOTE | 2017-02-19 09:15 | NUR ---
ASSESSMENT COMPLETED. SCDs TO BLE. TERESA MAT ALARM ON. DAUGHTER IN ROOM. CALL LIGHT IN REACH. WILL CONTINUE WITH PLAN OF CARE.
--- NOTE | 2017-02-19 11:59 | NUR ---
AM MEDS ADMINISTERED. DAUGHTER AT BEDSIDE. CALL LIGHT IN REACH.
--- NOTE | 2017-02-19 12:46 | NUR ---
URINE SAMPLE COLLECTED USING ASEPTIC TECHNIQUE AND SENT TO LAB.
[2017-02-19 12:59] VITALS: BP 144/72
--- NOTE | 2017-02-19 14:24 | NUR ---
RESTING WITH EYES CLOSED. RESP EVEN AND UNLABORED. CALL LIGHT IN REACH.
--- NOTE | 2017-02-19 14:32 | NUR ---
NUTRITION MONITORING & EVAL CHART REVIEWED, PT VISIT. REMAINS IN ISOLATION. FAMILY REPORTS PT NOT EATING. IS HOWEVER DRINKING ENSURE. WILL CONTINUE TO PROVIDE DIET, ENSURE. MONITOR PT PROGRESS. RD FOLLOWING
--- NOTE | 2017-02-19 15:37 | NUR ---
C/O PAIN OF 5 PER DAUGHTER. BUPRENEX IVP. CEFEPIME IVPB. CALL LIGHT IN REACH.
[2017-02-19 16:33] VITALS: BP 129/63
--- NOTE | 2017-02-19 16:59 | NUR ---
TYLENOL PO PER TEMP OF 99.3
--- NOTE | 2017-02-19 18:30 | NUR ---
SCOTT CATH CHANGED OUT WITH 16 FR CATHETER USING STERILE TECHNIQUE PER TARUN BURRIS. URINE SAMPLE COLLECTED AND SENT TO LAB. REPOSITIONED FOR COMFORT. TERESA MAT ALARM ON. CALL LIGHT IN REACH. NO CHANGES IN INITIAL ASSESSMENT. WILL CONTINUE WITH PLAN OF CARE.
--- NOTE | 2017-02-19 18:40 | NUR ---
PATIENT IN BED WITH EYES CLOSED RESTING QUIETLY. IV AND SCOTT INTACT. NO SIGNS OF DISTRESS. CALL LIGHT WITHIN REACH.
[2017-02-19 19:00] VITALS: BP 126/58
[2017-02-19 19:51] LABS: APPEARANCE HAZY (CLEAR); BILIRUBIN NEGATIVE (NEGATIVE); COLOR YELLOW (YELLOW); GLUCOSE NEGATIVE (NEGATIVE); KETONE NEGATIVE (NEGATIVE); LEUKOCYTE ESTERASE 1+ (NEGATIVE); NITRITE NEGATIVE (NEGATIVE); PROTEIN TRACE mg/dL (NEGATIVE); SPECIFIC GRAVITY 1.015 (1.005-1.020); UROBILINOGEN NORMAL (NORMAL)
[2017-02-19 19:54] LABS: BACTERIA MODERATE /hpf (NONE SEEN); EPITHELIAL CELLS 0-5 /hpf (0-5); RED CELLS - URINE 0-5 /hpf (0-5); WHITE CELLS - URINE 25-50 /hpf (0-5)
[2017-02-19 19:56] LABS: YEAST <1+ /hpf (NONE SEEN)
[2017-02-20 00:23] VITALS: BP 142/63
--- NOTE | 2017-02-20 01:15 | NUR ---
ASSESSED AT THE BEGINNING OF THE SHIFT. PT IS ALERT AND ORIENTED, FAMILY IS AT THE BEDSIDE. SHE REQUESTED PAIN MEDICINE AT THE SHIFTS BEGINNING AND IT SEEMED TO HELP. SHE IS WEARING HR SCD'S AND HAS TELEMETRY IN PLACE. O2 IS ON AT 2 LITERS. THE SCOTT IS DRAINING CLEAR YELLOW URINE. WE ARE TURNING AND REPOSITIONING HER FOR SKIN CARE AND COMFORT. AT TIMES THERE SEEMS TO BE JUST A LITTLE CONFUSION. THE BED IS LOW, RAILS UP X'2 WITH THE CALL LIGHT AT HAND.
[2017-02-20 04:00] VITALS: BP 149/70
[2017-02-20 06:58] LABS: BASOPHILS 0.4 % (0.0-2.0); EOSINOPHILS 2.2 % (0-7); HEMATOCRIT 33.7 % (36.0-48.0); HEMOGLOBIN 10.6 g/dL (12-16); LYMPHOCYTES 5.2 % (15-50); MCH 27.9 pg (26.0-34.0); MCHC 31.5 g/dL (31.0-37.0); MCV 88.7 fL (80.0-100.0); MEAN PLATELET VOLUME 8.8 fL (7.4-10.4); MONOCYTES 6.4 % (2-11); NEUTROPHILS 83.8 % (40-80); PLATELET COUNT 408 10x3/uL (130-400); RDW 14.6 % (11.5-14.5); WBC 17.1 10x3/uL (4.8-10.8)
[2017-02-20 07:11] LABS: INR 1.81 (0.85-1.17)
[2017-02-20 07:21] LABS: ALBUMIN 1.7 g/dL (3.4-5.0); ANION GAP 8.2 mmol/L (8-16); BILIRUBIN - TOTAL 0.3 mg/dL (0.2-1.3); CALCIUM 10.8 mg/dL (8.5-10.1); CARBON DIOXIDE 31.1 mmol/L (21.0-32.0); CREATININE - SERUM 1.2 mg/dL (0.6-1.3); POTASSIUM - SERUM 4.3 mmol/L (3.5-5.1); PROTEIN - SERUM 6.4 g/dL (6.4-8.2)
--- NOTE | 2017-02-20 07:30 | NUR ---
PT ASSESSMENT COMPLETE AWAKE AND ALERT ORIENTED X 3 LUNGS CLEAR PIV RESITED TO LEFT HAND 20 GA X 1 STICK CALL LIGHT IN REACH
[2017-02-20 08:20] VITALS: BP 135/60
[2017-02-20 12:55] VITALS: BP 123/62
--- NOTE | 2017-02-20 13:59 | NUR ---
RESTING QUIETLY IN BED. REPOSTIONED IN BED PER STAFF. VISITOR AT BEDSIDE. LUNGS CONTINUE WITH CRACKLES THROUGHOUT.
[2017-02-20 16:37] VITALS: BP 123/57
--- NOTE | 2017-02-20 18:57 | NUR ---
PT REQUESTED AND RECIEVED PAIN MED BUPRENEX 0.1 MG IVP PER ORDER
[2017-02-20 20:00] VITALS: BP 109/60
[2017-02-21] VITALS: BP 122/73
[2017-02-21 04:00] VITALS: BP 131/66
--- NOTE | 2017-02-21 04:43 | NUR ---
MAYA MAYA AT BEDSIDE PERFORMING PATIENT CARE. NO VISIBLE SIGNS OF DISTRESS NOTED.
[2017-02-21 07:02] LABS: BASOPHILS 0.5 % (0.0-2.0); EOSINOPHILS 3.3 % (0-7); HEMATOCRIT 31.7 % (36.0-48.0); HEMOGLOBIN 10.2 g/dL (12-16); IMMATURE GRANULOCYTES 2.7 % (0-5); LYMPHOCYTES 9.2 % (15-50); MCH 28.5 pg (26.0-34.0); MCHC 32.2 g/dL (31.0-37.0); MCV 88.5 fL (80.0-100.0); MEAN PLATELET VOLUME 8.9 fL (7.4-10.4); MONOCYTES 8.7 % (2-11); NEUTROPHILS 75.6 % (40-80); PLATELET COUNT 418 10x3/uL (130-400); RBC 3.58 10x6/uL (4.00-5.40); RDW 14.5 % (11.5-14.5); WBC 12.7 10x3/uL (4.8-10.8)
[2017-02-21 07:12] LABS: INR 1.96 (0.85-1.17); PROTIME 22.3 SECONDS (11.6-15.0)
[2017-02-21 07:18] LABS: ALBUMIN 1.7 g/dL (3.4-5.0); ANION GAP 10.5 mmol/L (8-16); BILIRUBIN - TOTAL 0.27 mg/dL (0.2-1.3); CALCIUM 10.2 mg/dL (8.5-10.1); CARBON DIOXIDE 29.5 mmol/L (21.0-32.0); CREATININE - SERUM 1.2 mg/dL (0.6-1.3); PROTEIN - SERUM 6.5 g/dL (6.4-8.2)
--- NOTE | 2017-02-21 07:40 | NUR ---
SLEEPING NO DISTRESS NOTED, BED LOWEST POSITION CALL GI IN REACH, WILL CONTINUE TO MONITOR
[2017-02-21 10:07] VITALS: BP 112/56
[2017-02-21 12:50] VITALS: BP 113/66
[2017-02-21 17:17] VITALS: BP 130/50
[2017-02-21 19:00] VITALS: BP 113/58
--- NOTE | 2017-02-21 20:00 | NUR ---
REC'D IN BED WITH FAMILY AT BEDSIDE. RESP EVEN AND UNLABORED WITH NO DISTRESS NOTED. CAN EXPRESS NOTED OR VOICED. ASSESSMENT COMLETED. C/L IN REACH AT BEDSIDE.
[2017-02-22] VITALS: BP 109/47
[2017-02-22 04:00] VITALS: BP 122/53
--- NOTE | 2017-02-22 04:40 | NUR ---
RESTING WELL AT THIS TIME NO C/O NOTED OR VOICED. CAN EXPRESS NEEDS WITH NONE NOTED. C/L IN REACH AT BEDSIDE
[2017-02-22 06:06] LABS: BASOPHILS 0.4 % (0.0-2.0); EOSINOPHILS 4.5 % (0-7); HEMATOCRIT 31.1 % (36.0-48.0); HEMOGLOBIN 9.8 g/dL (12-16); IMMATURE GRANULOCYTES 3.4 % (0-5); MCH 27.9 pg (26.0-34.0); MCHC 31.5 g/dL (31.0-37.0); MCV 88.6 fL (80.0-100.0); MONOCYTES 9.8 % (2-11); NEUTROPHILS 71.9 % (40-80); PLATELET COUNT 392 10x3/uL (130-400); RBC 3.51 10x6/uL (4.00-5.40); RDW 14.4 % (11.5-14.5)
[2017-02-22 06:16] LABS: WBC 9.4 10x3/uL (4.8-10.8)
[2017-02-22 06:30] LABS: ALBUMIN 1.7 g/dL (3.4-5.0); ANION GAP 9.1 mmol/L (8-16); BILIRUBIN - TOTAL 0.3 mg/dL (0.2-1.3); CALCIUM 10.3 mg/dL (8.5-10.1); CARBON DIOXIDE 29.9 mmol/L (21.0-32.0); CREATININE - SERUM 1.1 mg/dL (0.6-1.3); PHOSPHOROUS 2.5 mg/dL (2.5-4.9); PRE-ALBUMIN 20.5 mg/dL (18.0-35.7); PROTEIN - SERUM 6.3 g/dL (6.4-8.2)
[2017-02-22 08:39] VITALS: BP 139/75
[2017-02-22 11:30] VITALS: BP 133/66
[2017-02-22 12:37] LABS: INR 2.07 (0.85-1.17); PROTIME 23.3 SECONDS (11.6-15.0)
[2017-02-22 15:23] VITALS: BP 128/72
[2017-02-22 20:00] VITALS: BP 127/66
--- NOTE | 2017-02-22 23:41 | NUR ---
PT RECEIVED IN BED WITH EYES CLOSED AND CHEST RISING. REMAINS IN CONTACT ISOLATION FOR ESBL IN BLOOD. AROUSED TO VERBAL STIMULI. NO SIGN/SYMPTOMS OF DISTRESS NOTED. CALL LIGHT IN REACH.
--- NOTE | 2017-02-22 23:44 | NUR ---
PT IN BED WITH EYES CLOSED AND CHEST RISING AT THIS TIME. RECEIVED MEDICATIONS PER MAR WITHOUT DIFFICULTY. AT 2315 PT REQUEST ASSISTANCE STATING THAT SHE DID NOT FEEL RIGHT. PT ASSISTED IN REPOSITIONING ALIGNING BODY IN A STRAIGHT POSITION WITH HOB AT 30 DEGREES. V/S TAKEN AND WITHIN NORMAL LIMITS. NASAL CANULA WAS OFF AND PUT BACK ON. PT STATED SHE FELT BETTER BEFORE LEAVING . WILL CONTINUE TO OBSERVE. CALL LIGHT IN REACH.
[2017-02-23] VITALS (7 sets, daily range): BP systolic 108–152; BP diastolic 58–76
--- NOTE | 2017-02-23 02:54 | NUR ---
PT IN BED WITH EYES CLOSED AND CHEST RISING. NO SIGN/SYMPTOMS OF DISTRESS NOTED. NO CONCERNS NOTED. WILL CONTINUE TO OBSERVE. CALL LIGHT IN REACH.
[2017-02-23 07:23] LABS: INR 2.29 (0.85-1.17); PROTIME 25.3 SECONDS (11.6-15.0)
--- NOTE | 2017-02-23 07:30 | NUR ---
PT ASSESSMENT COMPLETE AWAKE AND ALERT TO VERBAL STTIMULI PT HAS CONFUSION NOTED LUNGS CLAER BIALTERAL BSA X 4 QUADS NO ACUTE DISTRESS NOTED SCOTT PATENT TO CLEAR YELLOW URINE ALL ALDS PER STAFF CALL LIGHT IN REACH SIDE RAILS UP X 2
[2017-02-23 07:40] LABS: ALBUMIN 1.7 g/dL (3.4-5.0); ANION GAP 6.8 mmol/L (8-16); BILIRUBIN - TOTAL 0.3 mg/dL (0.2-1.3); CALCIUM 10.3 mg/dL (8.5-10.1); CARBON DIOXIDE 32.5 mmol/L (21.0-32.0); CREATININE - SERUM 1.2 mg/dL (0.6-1.3); POTASSIUM - SERUM 4.3 mmol/L (3.5-5.1); PROTEIN - SERUM 6.3 g/dL (6.4-8.2)
[2017-02-23 10:34] LABS: HEMATOCRIT 31.7 % (36.0-48.0); LYMPHOCYTES 10.4 % (15-50); MCH 27.9 pg (26.0-34.0); MCHC 31.5 g/dL (31.0-37.0); MCV 88.3 fL (80.0-100.0); MEAN PLATELET VOLUME 8.5 fL (7.4-10.4); NEUTROPHILS 77.6 % (40-80); PLATELET COUNT 419 10x3/uL (130-400); RBC 3.59 10x6/uL (4.00-5.40); RDW 13.9 % (11.5-14.5); WBC 9.2 10x3/uL (4.8-10.8)
--- NOTE | 2017-02-23 11:38 | NUR ---
chief revenue officer note. pt has no sob or complaints at present. wants back to bed. physical therapy called for assistance. lung sounds clear with oxygen at 2lnc . call light in reach. bed alarm on for safety
--- NOTE | 2017-02-23 12:42 | NUR ---
THIS NURSE ATTEMPTE TO FEED PT REFUSED TO EVEN LET THIS NURSE PREPARE POTATO OR CUT CHICKEN STATES I ONLY WANT THE ENSURE. EXPLAINED THAT PT \NEDED MORE NUTIRTION THAN PROVIDED IN ENSURE STILL REFUSED
--- NOTE | 2017-02-23 14:13 | NUR ---
NUTRITION MONITORING & EVAL CHART REVIEWED. PT REMAINS IN ISOLATION WITH CONTINUED POOR PO INTAKE. MAY BENEFIT FROM PEG OR NG TUBE FEEDING UNTIL PT ABLE TO TAKE ADEQUATE PO. RD FOLLOWING
--- NOTE | 2017-02-23 19:50 | NUR ---
PT RECEIVED LYING IN BED RESTING QUIETLY AT THIS TIME. RATES PAIN 8/10. S/L NOTED TO RIGHT WRIST. DRESSING CDI. SCOTT CATHETER ATTACHED TO RIGHT THIGH DRAINING GERI URINE. HEART RRR. LUNG SOUNDS CLEAR BILATERALLY. BOWEL SOUNDS ACTIVE X4 QUADRENTS. PEDAL PULSES EQUAL BILATERALLY. PT ON 2 L O2 VIA NC. REPOSITIONED PT TO LEFT SIDE AT THIS TIME. PT DENIES OTHER NEEDS. BED LOW. PHONE AND CALL LIGHT IN REACH. SRX2.
--- NOTE | 2017-02-23 21:47 | NUR ---
PM MEDS GIVEN AT THIS TIME. ADMINISTERED TYLENOL PO PER ORDERS FOR PAIN PT RATES 06/17. PT DENIES OTHER NEEDS. BED LOW. PHONE AND CALL LIGHT IN REACH. SRX2.
--- NOTE | 2017-02-23 22:31 | NUR ---
PT RESTING QUIETLY AT THIS TIME WITH EYES CLOSED. RESPIRATIONS EVEN, NON-LABORED. NO ACUTE DISTRESS NOTED AT THIS TIME. BED LOW. PHONE AND CALL LIGHT IN REACH. SRX2.
[2017-02-24 04:01] VITALS: BP 122/60
[2017-02-24 05:26] LABS: BASOPHILS 0.4 % (0.0-2.0); EOSINOPHILS 3.7 % (0-7); HEMATOCRIT 31.3 % (36.0-48.0); HEMOGLOBIN 9.8 g/dL (12-16); IMMATURE GRANULOCYTES 1.8 % (0-5); LYMPHOCYTES 10.8 % (15-50); MCH 27.8 pg (26.0-34.0); MCHC 31.3 g/dL (31.0-37.0); MCV 88.9 fL (80.0-100.0); MEAN PLATELET VOLUME 8.8 fL (7.4-10.4); MONOCYTES 8.6 % (2-11); NEUTROPHILS 74.7 % (40-80); PLATELET COUNT 391 10x3/uL (130-400); RBC 3.52 10x6/uL (4.00-5.40); RDW 14.4 % (11.5-14.5); WBC 11.1 10x3/uL (4.8-10.8)
[2017-02-24 05:35] LABS: INR 2.38 (0.85-1.17); PROTIME 26.1 SECONDS (11.6-15.0)
--- NOTE | 2017-02-24 05:58 | NUR ---
PROTONIX PO PER ORDERS GIVEN AT THIS TIME. PT DENIES NEEDS. BED LOW. PHONE AND CALL LIGHT IN REACH. SRX2.
[2017-02-24 06:05] LABS: ALBUMIN 1.9 g/dL (3.4-5.0); BILIRUBIN - TOTAL 0.22 mg/dL (0.2-1.3); CALCIUM 9.6 mg/dL (8.5-10.1); CARBON DIOXIDE 30.4 mmol/L (21.0-32.0); POTASSIUM - SERUM 4.4 mmol/L (3.5-5.1); PROTEIN - SERUM 5.7 g/dL (6.4-8.2)
[2017-02-24 08:23] VITALS: BP 120/59
--- NOTE | 2017-02-24 08:53 | NUR ---
PT ASSESSMENT COMPLETE AWAKE AND ALERT THIS AM HAVING CONVERSATION AND ANSWERING APPROPRIATELY. PT ASSISTED WITH POSITIONING DRANK ENSURE HOWEVER REFUSED TO ET ANY BREAKFAST MEAL WITH SEVERL ATTEMPTS BY VARIOUS STAFF MEMBERS. CALL LIGHT IN REACH AND SIDE RAILS UP X 2 BED ALARM ON AND FUNCTIONING PROPERLY.
[2017-02-24 13:05] VITALS: BP 127/65
[2017-02-24 16:12] VITALS: BP 133/73
[2017-02-24 19:00] VITALS: BP 118/57
[2017-02-25] VITALS: BP 153/77
--- NOTE | 2017-02-25 00:42 | NUR ---
REC'D PATIENT LYING IN BED. STATED HER PAIN WAS 8/10 AND WOULD LIKE A TYLENOL. WILL ADMINISTER MEDS PRESCRIBED. NO DISTRESS NOTED. SALINE LOCKED IV. DENIED FURTHER NEEDS AT THIS TIME. INSTRUCTED TO CALL IF NEEDED ANYTHING. BED LOW, LOCKED, CALL LIGHT IN REACH, ALARM ON.
--- NOTE | 2017-02-25 03:12 | NUR ---
PATIENT IS RESTING IN BED. NO DISTRESS NOTED. DENIES PAIN AT THIS TIME. DENIES FURTHER NEEDS AT THIS TIME. INSTRUCTED TO CALL IF NEEDED ANYTHING. BED LOW, LOCKED, CALL LIGHT IN REACH, ALARM ON.
[2017-02-25 04:00] VITALS: BP 122/68
[2017-02-25 05:41] LABS: BASOPHILS 0.5 % (0.0-2.0); EOSINOPHILS 4.4 % (0-7); HEMATOCRIT 31.9 % (36.0-48.0); HEMOGLOBIN 9.8 g/dL (12-16); IMMATURE GRANULOCYTES 2.2 % (0-5); LYMPHOCYTES 13.3 % (15-50); MCH 27.6 pg (26.0-34.0); MCHC 30.7 g/dL (31.0-37.0); MCV 89.9 fL (80.0-100.0); MEAN PLATELET VOLUME 8.9 fL (7.4-10.4); MONOCYTES 7.1 % (2-11); NEUTROPHILS 72.5 % (40-80); PLATELET COUNT 410 10x3/uL (130-400); RBC 3.55 10x6/uL (4.00-5.40); RDW 14.3 % (11.5-14.5); WBC 9.8 10x3/uL (4.8-10.8)
[2017-02-25 05:43] LABS: INR 2.57 (0.85-1.17); PROTIME 27.8 SECONDS (11.6-15.0)
[2017-02-25 05:57] LABS: ALBUMIN 1.8 g/dL (3.4-5.0); ANION GAP 9.6 mmol/L (8-16); BILIRUBIN - TOTAL 0.3 mg/dL (0.2-1.3); CALCIUM 10.4 mg/dL (8.5-10.1); CARBON DIOXIDE 30.4 mmol/L (21.0-32.0); CREATININE - SERUM 1.1 mg/dL (0.6-1.3); PROTEIN - SERUM 6.5 g/dL (6.4-8.2)
--- NOTE | 2017-02-25 06:12 | NUR ---
PATIENT IS RESTING IN BED. IS WANTING A TYLENOL, WILL ADMINISTER PRESCRIBED. STATED PAIN WAS 6/10. DENIED FURTHER NEEDS AT THIS TIME. NO DISTRESS NOTED. BED LOW, LOCKED, CALL LIGHT IN REACH, ALARM ON.
--- NOTE | 2017-02-25 08:15 | NUR ---
PT ASSESSMENT COMPLETE RESTING WELL DOES AROUSE TO VERBAL STIMULI BSA X 4 HAS SCOTT PATENT TO DARK CONCENTRATED URINE WILL MONITOR,
--- NOTE | 2017-02-25 09:00 | NUR ---
LYING IN BED,WITHOUT DISTRESS.CALL LIGHT IN REACH
[2017-02-25 09:29] VITALS: BP 127/62
[2017-02-25] MEDS ORDERED: COUMADIN3 MG PO (11:46)
[2017-02-25] MEDS ORDERED: MUCINEX DM ER1 EAC1 PO (11:47)
[2017-02-25] MEDS ORDERED: TESSALON PERLE100 MG PO (11:47)
[2017-02-25] MEDS ORDERED: PULMICORT0.5 MG/21 UPD (11:47)
[2017-02-25] MEDS ORDERED: SINGULAIR10 MG PO (11:47)
[2017-02-25] MEDS ORDERED: FLUTICASONE PRO16 GM NASAL (11:48)
[2017-02-25] MEDS ORDERED: ALBUTEROL2.5 MG/3 M UPD (11:49)
[2017-02-25] MEDS ORDERED: IPRAT-ALBUT 0.5-3 ML INH (11:49)
[2017-02-25] MEDS ORDERED: RESTORIL7.5 MG PO (11:50)
--- NOTE | 2017-02-25 12:41 | NUR ---
Nutrition Follow Up: Chart reviewed. Pt is eating 13% meal avg on an AHA diet. She is receiving Ensure with meals. I<O. No new wt to assess. Labs and meds reviewed. Pt continues with very poor po intake. Will liberalize diet to regular to encourage po intake. Will continue to send Ensure TID. Rec consider an appetite stimulant. RD following.
--- NOTE | 2017-02-25 12:48 | NUR ---
CM REASSESSMENT NOTE: PATIENT IS DISCHARGING BACK TO [facility] TODAY TO A SKILLED BED BY FACILITY VAN.
--- NOTE | 2017-02-25 14:31 | NUR ---
REPORT CALLED TO [facility] AWAITING TRANSFER PT DRESSED AND SCOTT DISCONTINUED BULB DEFLATED PER THIS NURSE. PIV DC TIP IN TACT WILL AWAIT TRANSFER
--- NOTE | 2017-02-25 14:48 | NUR ---
PT LEFT VIA WHEELCHAIR WITH FAMILY AT SIDE TO FACILITY VAN
== END 2017-02-25 14:50 | DRG 178 ==
LOC: D.ER 11:48 → D.MS 14:43
PROVIDERS: Emergency Medicine; Family Medicine; Internal Medicine Pulmonary Disease; Student in an Organized Health Care Education/Training Program; ADMIT Family Medicine
PROC: 0T9B70Z Drainage of Bladder with Drainage Device, Via Natural or Artificial Opening (ICD-10-PCS; principal; 2017-02-14)
DX: J15.5 Pneumonia due to Escherichia coli (principal); N39.0 Urinary tract infection, site not specified; N17.9 Acute kidney failure, unspecified; R78.81 Bacteremia; E87.1 Hypo-osmolality and hyponatremia; J98.11 Atelectasis; E44.0 Moderate protein-calorie malnutrition; E87.3 Alkalosis; J45.909 Unspecified asthma, uncomplicated; K59.00 Constipation, unspecified; I12.9 Hypertensive chronic kidney disease with stage 1 through stage 4 chronic kidney disease, or unspecified chronic kidney disease; N18.9 Chronic kidney disease, unspecified; Z86.718 Personal history of other venous thrombosis and embolism; Z86.711 Personal history of pulmonary embolism; Z85.3 Personal history of malignant neoplasm of breast; Z68.30 Body mass index [BMI] 30.0-30.9, adult; B96.20 Unspecified Escherichia coli [E. coli] as the cause of diseases classified elsewhere; D50.9 Iron deficiency anemia, unspecified

== ENCOUNTER 2017-04-01 21:58 | Emergency (ER) | payer MEDICARE ==
[2017-02-05 14:13] VITALS: BMI 30.4
[~2017-04-01 21:58] MED LIST: ACETAMINOPHEN325 MG PO; ALBUTEROL2.5 MG/3 M UPD; ANASTROZOLE1 MG PO; COLACE100 MG PO; COUMADIN2.5 MG PO; COUMADIN3 MG PO; DETROL LA4 MG PO; FLUTICASONE PRO16 GM NASAL; HYDROCODON-ACE1 EAC7 PO; INDERAL LA80 MG PO; IPRAT-ALBUT 0.5-3 ML INH; K-TAB10 MEQ PO; MIRALAX17 GM PO; MUCINEX DM ER1 EAC1 PO; MYLANTA / MAALO30 ML PO; NORCO 7.5/325 T1 TA1 PO; NORVASC10 MG PO; OMEPRAZOLE20 M1 PO; PREPARATION H O57 GM TOPICAL; PREPARATION H S48 EA RC; PROAIR HFA8.5 GM INH; PULMICORT0.5 MG/21 UPD; RESTORIL7.5 MG PO; SINGULAIR10 MG PO; SLOW RELEASE I160 MG PO; TESSALON PERLE100 MG PO; TRIAMTERENE-HCT1 TA1 PO; VITAMIN D31000 UNIT PO
[2017-04-01 22:51] LABS: ANION GAP 11.6 mmol/L (8-16); CALCIUM 10.2 mg/dL (8.5-10.1); CARBON DIOXIDE 28.1 mmol/L (21.0-32.0); CREATININE - SERUM 1.1 mg/dL (0.6-1.3); POTASSIUM - SERUM 3.7 mmol/L (3.5-5.1)
== END 2017-04-02 00:35 | disposition home or self-care (01) ==
LOC: D.ER 21:58
PROVIDERS: Emergency Medicine
DX: Z03.89 Encounter for observation for other suspected diseases and conditions ruled out (principal); C50.919 Malignant neoplasm of unspecified site of unspecified female breast; K21.9 Gastro-esophageal reflux disease without esophagitis; I10 Essential (primary) hypertension; E78.5 Hyperlipidemia, unspecified; E83.42 Hypomagnesemia; K58.9 Irritable bowel syndrome, unspecified; N28.9 Disorder of kidney and ureter, unspecified

== ENCOUNTER 2019-03-01 21:11 | Inpatient (IN) | payer MEDICARE ==
[~2019-03-01] VITALS: Ht 170.2 cm; Wt 88.0 kg
[2019-03-01 22:53] LABS: BASOPHILS 0.1 % (0-2); EOSINOPHILS 0.3 % (0-7); HEMATOCRIT 39.4 % (36.0-48.0); HEMOGLOBIN 13.2 g/dL (12-16); IMMATURE GRANULOCYTES 0.4 % (0-5); MCH 30.2 pg (26.0-34.0); MCHC 33.5 g/dL (31.0-37.0); MCV 90.2 fL (80.0-100.0); MEAN PLATELET VOLUME 9.2 fL (7.4-10.4); MONOCYTES 8.3 % (2-11); NEUTROPHILS 87.9 % (40-80); PLATELET COUNT 149 10x3/uL (130-400); RBC 4.37 10x6/uL (4.00-5.40); RDW 14.6 % (11.5-14.5); WBC 11.5 10x3/uL (4.8-10.8)
[2019-03-01 23:07] LABS: APPEARANCE HAZY (CLEAR); COLOR YELLOW (YELLOW); SPECIFIC GRAVITY 1.015 (1.005-1.020)
[2019-03-01 23:08] LABS: BACTERIA MANY /hpf (NONE SEEN); BILIRUBIN NEGATIVE (NEGATIVE); EPITHELIAL CELLS NSEEN /hpf (0-5); GLUCOSE NEGATIVE (NEGATIVE); KETONE NEGATIVE (NEGATIVE); NITRITE NEGATIVE (NEGATIVE); PROTEIN TRACE mg/dL (NEGATIVE); RED CELLS - URINE 0-5 /hpf (0-5); UROBILINOGEN NORMAL (NORMAL)
[2019-03-01 23:09] LABS: ALBUMIN 2.6 g/dL (3.4-5.0); ANION GAP 8.9 mmol/L (8-16); BILIRUBIN - TOTAL 0.42 mg/dL (0.2-1.3); CALCIUM 9.7 mg/dL (8.5-10.1); CARBON DIOXIDE 30.6 mmol/L (21.0-32.0); CREATININE - SERUM 1.2 mg/dL (0.6-1.3); POTASSIUM - SERUM 3.5 mmol/L (3.5-5.1); PROTEIN - SERUM 6.4 g/dL (6.4-8.2)
--- NOTE | 2019-03-01 23:44 | NUR ---
PT LYING IN BED. NO DISTRESS NOTED. 16 FR SCOTT CATH PLACED AND URINE SAMPLE SENT TO LAB. PT TOLERATED WELL.
[2019-03-02] VITALS (7 sets, daily range): BP systolic 105–147; BP diastolic 43–83; Ht 170.2 cm; Wt 88.0 kg
--- NOTE | 2019-03-02 02:08 | NUR ---
PT ARRIVED TO FLOOR VIA BED WITH HOSPITAL STAFF AND DAUGHTER. CALL LIGHT IN REACH. PT ON 3L OF O2. SCOTT IN PLACE. LEFT AC IV 20GUAGE RUNNING AT 75ML/H. VITALS- TEMP. 97.4, RESP 20, 117/62, 78, 92%. WCTM
[2019-03-02] MEDS ORDERED: BIOFREEZE118 ML TOPICAL (02:33)
[2019-03-02] MEDS ORDERED: CELEXA20 MG PO (02:34)
[2019-03-02] MEDS ORDERED: MELATONIN 3 MG1 TAB PO (02:35)
[2019-03-02] MEDS ORDERED: CLOTRIMAZOLE-BE30 ML TOPICAL (02:35)
[2019-03-02] MEDS ORDERED: HYDROCODON-ACE1 EAC7 PO ×2 (02:37→02:38)
[2019-03-02] MEDS ORDERED: SENNA LAXATIVE8.6 MG PO (02:39)
[2019-03-02] MEDS ORDERED: SCOT-TUSSI10 MG/5 ML PO (02:40)
[2019-03-02] MEDS ORDERED: OMEPRAZOLE40 MG PO (02:40)
[2019-03-02] MEDS ORDERED: XARELTO20 MG PO (02:41)
[2019-03-02] MEDS ORDERED: ZOFRAN4 MG PO (02:43)
--- NOTE | 2019-03-02 05:21 | NUR ---
PT RESTING QUIETLY. CALL LIGHT IN REACH. O2 ON 3L. NO SIGNS OF DISTRESS OR PAIN. WCTM
--- NOTE | 2019-03-02 07:20 | NUR ---
INITAL ROUNDING ON THE PATIENT, SHE IS RESTING WITH EYES CLOSED, SUPINE, LIGHTS OFF AND FAMILY AT THE BEDSIDE.
--- NOTE | 2019-03-02 20:20 | NUR ---
PT LYING IN BED. CALL LIGHT IN REACH. DENIES NEEDS OR PAIN. BED IN LOW SIDE RAILS X2. SCOTT IN PLACE. O2 ON 3L. FAMILY IN ROOM. A/O X4. LUNGS CLEAR. BOWEL ACTIVE X4. TAKES MEDS WHOLE. WILL CONTINUE TO MONITOR.
[2019-03-03 00:15] VITALS: BP 106/40
--- NOTE | 2019-03-03 02:22 | NUR ---
I have reviewed this patient and I concur with the Shift Assessment completed by the Licensed Practical Nurse today this shift.
--- NOTE | 2019-03-03 04:45 | NUR ---
PT RESTING QUIETLY. CALL LIGHT IN REACH. EYES CLOSED. WCTM NO SIGNS OF DISTRESS OR PAIN.
[2019-03-03 04:46] VITALS: BP 145/66
[2019-03-03 07:13] LABS: BASOPHILS 0.1 % (0-2); EOSINOPHILS 3.3 % (0-7); HEMATOCRIT 36.8 % (36.0-48.0); HEMOGLOBIN 12.1 g/dL (12-16); IMMATURE GRANULOCYTES 0.3 % (0-5); LYMPHOCYTES 14.8 % (15-50); MCH 30.1 pg (26.0-34.0); MCHC 32.9 g/dL (31.0-37.0); MCV 91.5 fL (80.0-100.0); MEAN PLATELET VOLUME 9.4 fL (7.4-10.4); MONOCYTES 16.3 % (2-11); NEUTROPHILS 65.2 % (40-80); PLATELET COUNT 129 10x3/uL (130-400); RBC 4.02 10x6/uL (4.00-5.40); RDW 14.7 % (11.5-14.5)
[2019-03-03 07:14] LABS: WBC 6.7 10x3/uL (4.8-10.8)
--- NOTE | 2019-03-03 07:26 | NUR ---
PT ASLEEP, DID NOT WAKE I ENTERED. DID NOT FURTHER DISTURB AT THIS TIME. CL IN REACH. SRX2.
[2019-03-03 07:29] LABS: ALBUMIN 2.3 g/dL (3.4-5.0); ANION GAP 9.9 mmol/L (8-16); BILIRUBIN - TOTAL 0.27 mg/dL (0.2-1.3); CARBON DIOXIDE 26.8 mmol/L (21.0-32.0); CREATININE - SERUM 1.1 mg/dL (0.6-1.3); POTASSIUM - SERUM 3.7 mmol/L (3.5-5.1); PROTEIN - SERUM 6.2 g/dL (6.4-8.2)
[2019-03-03 09:33] VITALS: BP 143/69
[2019-03-03 12:04] VITALS: BP 148/68
--- NOTE | 2019-03-03 12:58 | NUR ---
I have reviewed this patient and I concur with the Shift Assessment completed by the Licensed Practical Nurse today this shift.
[2019-03-03 18:15] VITALS: BP 133/60
--- NOTE | 2019-03-03 18:37 | NUR ---
PT AWAKE, ORIENTED. DAUGHTER AT BEDSIDE. NO COMPLAINTS/CONCERNS VOICED ATT HIS TIME. CL INR EACH, SRX2.
[2019-03-03 20:27] VITALS: BP 169/72
--- NOTE | 2019-03-03 22:32 | NUR ---
RECIEVED UP IN BEDW ITH EYES OPEN AND SPOUSE AT BEDSIDE. F/C INTACT WITH CLEAR YELLOW URINE DRAINING TO BEDSIDE DRAINAGE BAG. ALERT AND ORIENTED X4. REMAINS BEDFAST. REQUIRES TOTAL CARE. ABLE TO FEED SELF. IV TO LEFT AC WITH NS AT 75CC/HR. O2@ 3 LITERS PER N/C IN PLACE. MUST REPEAT QUESTIONS SEVERAL TIMES D/T BEING [place]. DENIES ANY NEEDS.
[2019-03-04 05:28] VITALS: BP 174/85
[2019-03-04 06:50] LABS: BASOPHILS 0.3 % (0-2); EOSINOPHILS 4.9 % (0-7); HEMATOCRIT 37.7 % (36.0-48.0); HEMOGLOBIN 12.3 g/dL (12-16); IMMATURE GRANULOCYTES 0.3 % (0-5); LYMPHOCYTES 14.8 % (15-50); MCH 30.1 pg (26.0-34.0); MCHC 32.6 g/dL (31.0-37.0); MCV 92.2 fL (80.0-100.0); MEAN PLATELET VOLUME 9.7 fL (7.4-10.4); MONOCYTES 14.2 % (2-11); NEUTROPHILS 65.5 % (40-80); PLATELET COUNT 149 10x3/uL (130-400); RBC 4.09 10x6/uL (4.00-5.40); RDW 14.4 % (11.5-14.5); WBC 6.1 10x3/uL (4.8-10.8)
[2019-03-04 07:04] LABS: ANION GAP 12.2 mmol/L (8-16); CALCIUM 9.2 mg/dL (8.5-10.1); CARBON DIOXIDE 24.6 mmol/L (21.0-32.0); CREATININE - SERUM 0.9 mg/dL (0.6-1.3); POTASSIUM - SERUM 3.8 mmol/L (3.5-5.1)
--- NOTE | 2019-03-04 07:40 | NUR ---
ASSESSMENT COMPLETE. IV TO L AC PATENT. O2 2L NC IN USE. COCOPAH. SCOTT PATENT DRAINING YELLOW URINE. SCD'S IN USE TO BILAT LEGS. FAMILY AT BEDSIDE. DENIES ANY NEEDS AT THIS TIME.
[2019-03-04 07:49] VITALS: BP 178/86
[2019-03-04] MEDS ORDERED: CEFUROXIME500 MG PO (09:59)
--- NOTE | 2019-03-04 10:56 | MORECARE ---
CASE MANAGEMENT DISCHARGE SUMMARY PATIENT: LAYLA COBB UNIT: [id number] ADM DATE: 03/02/19 AGE: 83 : 35 SEX: F ROOM/BED: D.1210 AUTHOR: ANGEL GANDIH PHYSICIAN: REFERRING PHYSICIAN: JCARLOS IVY MD DATE OF SERVICE: 03/04/19 Discharge Plan Patient Name: LAYLA COBB Facility: [facility]:[place] : 1935 Planned Disposition: [facility] Facility w Plan Readm Anticipated Discharge Date: Discharge Date: Expected LOS: Initial Reviewer: BROCK Initial Review Date: 03/04/2019 Generated: 03/04/19 11:56 am DCPIA - Discharge Planning Initial Assessment Updated by [email or web address]: Nicol Santiago on 03/04/19 10:53 am * Is the patient Alert and Oriented? Yes * How many steps to enter\exit or inside your home? * PCP [place] doctor * [place]acy [place] * Preadmission Environment Longterm Longterm * Facility Name [place] [id number] * ADLs Partial Dependent * Partial ADLs (Assistance needed) Ambulation Bathing Dressing Eating Medication Management * List name and contact numbers for known caregivers / representatives who currently or will assist patient after discharge: alida Loepz [phone] * Verbal permission to speak to the caregivers and representatives has been obtained from the patient. N/A * Community resources currently utilized Other * Please name any agencies selected above. [place] * Additional services required to return to the preadmission environment? No * Can the patient safely return to the preadmission environment? Yes * Has this patient been hospitalized within the prior 30 days at any hospital? No Patient Name: LAYLA COBB Page [phone] at 1056 All edits/amendments must be made on the electronic document DICTATION DATE: 03/04/19 1056 CIRCUS RIDER: JERRY 03/04/19 1056 RPT#: [id number] DC DATE: STATUS: ADM IN [facility] [address] [place] [address] END OF REPORT
--- NOTE | 2019-03-04 11:04 | MORECARE ---
CASE MANAGEMENT DISCHARGE SUMMARY PATIENT: LAYLA COBB UNIT: [id number] ADM DATE: 03/02/19 AGE: 83 : 35 SEX: F ROOM/BED: D.1210 AUTHOR: ANGEL GANDHI PHYSICIAN: REFERRING PHYSICIAN: JCARLOS IVY MD DATE OF SERVICE: 03/04/19 Discharge Plan Patient Name: LAYLA COBB Facility: [facility]:[place] : 1935 Planned Disposition: [facility] w Plan Readm Anticipated Discharge Date: Discharge Date: Expected LOS: Initial Reviewer: [email or web address] Initial Review Date: 03/04/2019 Generated: 03/04/19 12:03 pm Comments DCP- Discharge Planning Updated by [email or web address]: Nicol Santiago on 03/04/19 9:[address] Patient Name: LAYLA COBB Admission Status: ER Accout number: [id number] Admission Date: 03-02-2019 : 1935 Admission Diagnosis: Attending: JCARLOS IVY Current LOS: 2 Anticipated DC Date: Planned Disposition: [facility] w Plan Readm Primary Insurance: MEDICARE A & B Discharge Planning Comments: CM met with pt. and got consent to speak to daughter Mrs Lopez about dc needs. I explained CM role and I discussed with daughter and pt about dc plans back to [facility]. [place] will hot die picker at DC Laster Hand: Nicol Santiago DCPIA - Discharge Planning Initial Assessment Updated by [email or web address]: Nicol Santiago on 03/04/19 10:53 am * Is the patient Alert and Oriented? Yes * How many steps to enter\exit or inside your home? * PCP [place] doctor * Pharmacy [place] pharmacy * Preadmission Environment Skilled Nursing Senior Living * Facility Name [place] [id number] * ADLs Partial Dependent * Partial ADLs (Assistance needed) Ambulation Bathing Dressing Eating Medication Management * List name and contact numbers for known caregivers / representatives who currently or will assist patient after discharge: alida Lopez [phone] * Verbal permission to speak to the caregivers and representatives has been obtained from the patient. N/A * Community resources currently utilized Other * Please name any agencies selected above. [place] * Additional services required to return to the preadmission environment? No * Can the patient safely return to the preadmission environment? Yes * Has this patient been hospitalized within the prior 30 days at any hospital? No Last DP export: 03/04/19 9:56 a Patient Name: LAYLA COBB Page [phone] at 1104 All edits/amendments must be made on the electronic document DICTATION DATE: 03/04/191102 EQUIPMENT ENGINEER: JERRY 03/04/191102 RPT#: [id number] DC DATE: STATUS: ADM IN [facility] [address] [place] [address] END OF REPORT
[2019-03-04 11:21] VITALS: BP 165/64
--- NOTE | 2019-03-04 11:38 | MORECARE ---
CASE MANAGEMENT DISCHARGE SUMMARY PATIENT: LAYLA COBB UNIT: [id number] ADM DATE: 03/02/19 AGE: 83 : 35 SEX: F ROOM/BED: D.1210 AUTHOR: ANGEL GANDHI PHYSICIAN: REFERRING PHYSICIAN: JCARLOS IVY MD DATE OF SERVICE: 03/04/19 Discharge Plan Patient Name: LAYLA COBB Facility: [facility]:[place] : 1935 Planned Disposition: [facility] w Plan Readm Anticipated Discharge Date: Discharge Date: Expected LOS: Initial Reviewer: [email or web address] Initial Review Date: 03/04/2019 Generated: 03/04/19 12:38 pm Comments DCP- Discharge Planning Updated by [email or web address]: Nicol Santiago on 03/04/19 10:[address] Patient Name: LAYLA COBB Encounter No: [id number] : 1935 Primary Insurance: MEDICARE A & B Anticipated DC Date: Planned Disposition: [facility] w Plan Readm External Planned Provider: : DCP follow-up note: Patient and family in agreement with discharge plan. No changes to plan. Case management will follow and assist as needed. Nicol Santiago PT DC'D HOME DCP- Discharge Planning Updated by [email or web address]: Nicol Santiago on 03/04/19 9:[address] Patient Name: LAYLA COBB Admission Status: ER Accout number: [id number] Admission Date: 03-02-2019 : 1935 Admission Diagnosis: Attending: JCARLOS IVY Current LOS: 2 Anticipated DC Date: Planned Disposition: [facility] w Plan Readm Primary Insurance: MEDICARE A & B Discharge Planning Comments: CM met with pt. and got consent to speak to daughter Mrs Lopez about dc needs. I explained CM role and I discussed with daughter and pt about dc plans back to [facility]. [place] will pickle pumper at DC Fur Dressing Supervisor: Nicol Santiago DCPIA - Discharge Planning Initial Assessment Updated by [email or web address]: Nicol Santiago on 03/04/19 10:53 am * Is the patient Alert and Oriented? Yes * How many steps to enter\exit or inside your home? * PCP [place] doctor * Pharmacy [place] pharmacy * Preadmission Environment Nursing Staffing Coordinator Care Home * Facility Name [place] [id number] * ADLs Partial Dependent * Partial ADLs (Assistance needed) Ambulation Bathing Dressing Eating Medication Management * List name and contact numbers for known caregivers / representatives who currently or will assist patient after discharge: daughter Alaina Lopez [phone] * Verbal permission to speak to the caregivers and representatives has been obtained from the patient. N/A * Community resources currently utilized Other * Please name any agencies selected above. [place] * Additional services required to return to the preadmission environment? No * Can the patient safely return to the preadmission environment? Yes * Has this patient been hospitalized within the prior 30 days at any hospital? No Last DP export: 03/04/19 10:04 a Patient Name: LAYLA COBB Page 00211 at 1138 All edits/amendments must be made on the electronic document DICTATION DATE: 03/04/191137 DRIVERS LICENSE EXAMINER: JERRY 03/04/19 1138 RPT#: [id number] DC DATE: STATUS: ADM IN [facility] [address] [place] [address] END OF REPORT
--- NOTE | 2019-03-04 12:00 | NUR ---
AWAITING TO DISCHARGE BACK TO [place] AFTER [place] [place] PAPERWORK.
--- NOTE | 2019-03-04 12:55 | MORECARE ---
CASE MANAGEMENT DISCHARGE SUMMARY PATIENT: LAYLA COBB UNIT: [id number] ADM DATE: 03/02/19 AGE: 83 : 35 SEX: F ROOM/BED: D.1210 AUTHOR: ANGEL GANDHI PHYSICIAN: REFERRING PHYSICIAN: JCARLOS IVY MD DATE OF SERVICE: 03/04/19 Discharge Plan Patient Name: LAYLA COBB Facility: [facility]:[place] : 1935 Planned Disposition: [facility] w Plan Readm Anticipated Discharge Date: Discharge Date: Expected LOS: Initial Reviewer: [email or web address] Initial Review Date: 03/04/2019 Generated: 03/04/19 1:55 pm Comments DCP- Discharge Planning Updated by [email or web address]: Nicol Santiago on 03/04/19 11:[address] Patient Name: LAYLA COBB Encounter No: [id number] : 1935 Primary Insurance: MEDICARE A & B Anticipated DC Date: Planned Disposition: [facility] w Plan Readm External Planned Provider: : DCP follow-up note: Patient and family in agreement with discharge plan. No changes to plan. Case management will follow and assist as needed. Nicol Santiago pt dc [place] ([facility] BED) DCP- Discharge Planning Updated by [email or web address]: Nicol Santiago on 03/04/19 9:[address] Patient Name: LAYLA COBB Admission Status: ER Accout number: [id number] Admission Date: 03-02-2019 : 1935 Admission Diagnosis: Attending: JCARLOS IVY Current LOS: 2 Anticipated DC Date: Planned Disposition: [facility] w Plan Readm Primary Insurance: MEDICARE A & B Discharge Planning Comments: CM met with pt. and got consent to speak to daughter Mrs Lopez about dc needs. I explained CM role and I discussed with daughter and pt about dc plans back to [facility]. [place] will picking crew supervisor at DC Financial Aid: Nicol Santiago DCPIA - Discharge Planning Initial Assessment Updated by [email or web address]: Nicol Santiago on 03/04/19 10:53 am * Is the patient Alert and Oriented? Yes * How many steps to enter\exit or inside your home? * PCP [place] doctor * Pharmacy [place] pharmacy * Preadmission Environment Business Professor [facility] * Facility Name [place] [id number] * ADLs Partial Dependent * Partial ADLs (Assistance needed) Ambulation Bathing Dressing Eating Medication Management * List name and contact numbers for known caregivers / representatives who currently or will assist patient after discharge: daughter Alaina Lopez [phone] * Verbal permission to speak to the caregivers and representatives has been obtained from the patient. N/A * Community resources currently utilized Other * Please name any agencies selected above. [place] * Additional services required to return to the preadmission environment? No * Can the patient safely return to the preadmission environment? Yes * Has this patient been hospitalized within the prior 30 days at any hospital? No Last DP export: 03/04/19 10:38 a Patient Name: LAYLA COBB Page 80144 at 1255 All edits/amendments must be made on the electronic document DICTATION DATE: 03/04/19 125 CABLE FORMER: JERRY 03/04/19 1254 RPT#: [id number] DC DATE: STATUS: ADM IN [facility] [address] [place] [address] END OF REPORT
--- NOTE | 2019-03-04 13:06 | MORECARE ---
CASE MANAGEMENT DISCHARGE SUMMARY PATIENT: LAYLA COBB UNIT: [id number] ADM DATE: 03/02/19 AGE: 83 : 35 SEX: F ROOM/BED: D.1210 AUTHOR: ANGEL GANDHI PHYSICIAN: REFERRING PHYSICIAN: JCARLOS IVY MD DATE OF SERVICE: 03/04/19 Discharge Plan Patient Name: LAYLA COBB Facility: [facility]:[place] : 1935 Planned Disposition: [facility] w Plan Readm Anticipated Discharge Date: Discharge Date: Expected LOS: Initial Reviewer: [email or web address] Initial Review Date: 03/04/2019 Generated: 03/04/19 2:05 pm Comments DCP- Discharge Planning Updated by [email or web address]: Nicol Santiago on 03/04/19 11:[address] Patient Name: LAYLA COBB Encounter No: [id number] : 1935 Primary Insurance: MEDICARE A & B Anticipated DC Date: Planned Disposition: [facility] w Plan Readm External Planned Provider: : DCP follow-up note: Patient and family in agreement with discharge plan. No changes to plan. Case management will follow and assist as needed. Will DC to [facility] BED Nicol Santiago pt dc to [place] ([facility] BED) DCP- Discharge Planning Updated by [email or web address]: Nicol Santiago on 03/04/19 9:[address] Patient Name: LAYLA COBB Admission Status: ER Accout number: [id number] Admission Date: 03-02-2019 : 1935 Admission Diagnosis: Attending: JCARLOS IVY Current LOS: 2 Anticipated DC Date: Planned Disposition: [facility] w Plan Readm Primary Insurance: MEDICARE A & B Discharge Planning Comments: CM met with pt. and got consent to speak to daughter Mrs Lopez about dc needs. I explained CM role and I discussed with daughter and pt about dc plans back to [facility]. [place] will roll picker at DC Adult Nurse Practitioner: Nicol Santiago DCPIA - Discharge Planning Initial Assessment Updated by [email or web address]: Nicol Santiago on 03/04/19 10:53 am * Is the patient Alert and Oriented? Yes * How many steps to enter\exit or inside your home? * PCP [place] doctor * Pharmacy [place] pharmacy * Preadmission Environment Contact [employer] [facility] * Facility Name [place] [id number] * ADLs Partial Dependent * Partial ADLs (Assistance needed) Ambulation Bathing Dressing Eating Medication Management * List name and contact numbers for known caregivers / representatives who currently or will assist patient after discharge: daughter Alaina Lopez [phone] * Verbal permission to speak to the caregivers and representatives has been obtained from the patient. N/A * Community resources currently utilized Other * Please name any agencies selected above. [place] * Additional services required to return to the preadmission environment? No * Can the patient safely return to the preadmission environment? Yes * Has this patient been hospitalized within the prior 30 days at any hospital? No Last DP export: 03/04/19 11:55 a Patient Name: LAYLA COBB Page 48121 at 1306 All edits/amendments must be made on the electronic document DICTATION DATE: 03/04/19 1305 EXTERMINATION SUPERVISOR: JERRY 03/04/19 1305 RPT#: [id number] DC DATE: STATUS: ADM IN [facility] [address] [place] [address] END OF REPORT
--- NOTE | 2019-03-04 13:16 | NUR ---
O2 SAT 97% ON RA.
--- NOTE | 2019-03-04 14:00 | NUR ---
IV REMOVED. CATHETER TIP INTACT. SCOTT CATHETER REMOVED. CATHETER TIP INTACT. DISCHARGE TEACHING GIVEN TO PATIENT AND DAUGHTER. VOICED UNDERSTANDING.
--- NOTE | 2019-03-04 14:20 | NUR ---
DC'D TO [facility] WITH CONSTRUCTION TECH WITH DISCHARGE PAPERWORK.
== END 2019-03-04 14:20 | DRG 689 ==
LOC: D.ER 21:11 → OBSVTIME 03-02 00:49 → D.EDHOLD 03-02 00:49 → D.M3 03-02 01:15
PROVIDERS: Family Medicine; ADMIT Internal Medicine Nephrology; ATTEND Internal Medicine Nephrology
DX: N39.0 Urinary tract infection, site not specified (principal); R53.2 Functional quadriplegia; N17.9 Acute kidney failure, unspecified; I12.9 Hypertensive chronic kidney disease with stage 1 through stage 4 chronic kidney disease, or unspecified chronic kidney disease; N18.9 Chronic kidney disease, unspecified; K44.9 Diaphragmatic hernia without obstruction or gangrene